=== PATIENT | male | born 1945 | race Caucasian/White ===

== ENCOUNTER 2018-11-20 18:10 | Observation (INO) | payer MEDICARE, OTHER ==
[~2018-11-20] VITALS: Ht 167.6 cm; Wt 95.9 kg
[2018-11-20] VITALS (11 sets, daily range): BP systolic 120–179; BP diastolic 53–78; BMI 37.8
[2018-11-20] MEDS ORDERED: BAYER CHEWABLE81 MG PO (18:27)
[2018-11-20] MEDS ORDERED: LOPRESSOR25 MG PO (18:27)
[2018-11-20] MEDS ORDERED: GLUCOPHAGE1000 MG PO (18:27)
[2018-11-20] MEDS ORDERED: VITAMIN D31000 UNI2 PO (18:28)
[2018-11-20] MEDS ORDERED: NOVOLIN 70/30 110 ML (18:28)
[2018-11-20 18:46] LABS: BASOPHILS 0.4 % (0-2); EOSINOPHILS 1.7 % (0-7); HEMATOCRIT 45.9 % (42.0-54.0); HEMOGLOBIN 15.4 g/dL (13.5-17.5); IMMATURE GRANULOCYTES 0.2 % (0-5); LYMPHOCYTES 34.4 % (15-50); MCH 29.6 pg (26.0-34.0); MCHC 33.6 g/dL (31.0-37.0); MCV 88.1 fL (80.0-100.0); MONOCYTES 7.7 % (2-11); NEUTROPHILS 55.6 % (40-80); PLATELET COUNT 222 10x3/uL (130-400); RBC 5.21 10x6/uL (4.20-6.10); RDW 13.5 % (11.5-14.5); WBC 10.5 10x3/uL (4.8-10.8)
[2018-11-20 18:55] LABS: INR 1.04 (0.85-1.17); PROTIME 13.1 SECONDS (11.6-15.0)
[2018-11-20 18:56] LABS: APTT 30.7 SECONDS (22.8-39.4)
[2018-11-20 19:01] LABS: ALBUMIN 3.5 g/dL (3.4-5.0); ANION GAP 14.5 mmol/L (8-16); BILIRUBIN - TOTAL 0.75 mg/dL (0.2-1.3); CALCIUM 9.1 mg/dL (8.5-10.1); CARBON DIOXIDE 28.8 mmol/L (21.0-32.0); CREATININE - SERUM 1.1 mg/dL (0.6-1.3); POTASSIUM - SERUM 4.3 mmol/L (3.5-5.1); PROTEIN - SERUM 7.5 g/dL (6.4-8.2)
[2018-11-20 20:41] LABS: CKMB 0.9 U/L (0.0-3.6); TROPONIN-I 0.018 ng/mL (0.000-0.060)
[2018-11-20 22:25] LABS: COLOR YELLOW (YELLOW)
[2018-11-20 22:26] LABS: APPEARANCE CLEAR (CLEAR); BILIRUBIN NEGATIVE (NEGATIVE); EPITHELIAL CELLS NSEEN /hpf (0-5); GLUCOSE 1000 mg/dL (NEGATIVE); KETONE NEGATIVE (NEGATIVE); NITRITE NEGATIVE (NEGATIVE); PROTEIN NEGATIVE (NEGATIVE); RED CELLS - URINE NONE SEEN /hpf (0-5); SPECIFIC GRAVITY 1.015 (1.005-1.020); WHITE CELLS - URINE NSEEN /hpf (0-5)
[2018-11-21 00:38] VITALS: BP 179/76
[2018-11-21 00:46] LABS: CREATINE KINASE 73 UL (21-232)
[2018-11-21 00:50] LABS: TROPONIN-I 0.016 ng/mL (0.000-0.060)
[2018-11-21 01:54] LABS: CKMB 0.8 U/L (0.0-3.6)
[2018-11-21 05:40] VITALS: BP 144/60
[2018-11-21 07:45] LABS: CKMB 0.6 U/L (0.0-3.6); CREATINE KINASE 54 UL (21-232); TROPONIN-I 0.021 ng/mL (0.000-0.060)
[2018-11-21 08:31] VITALS: BP 156/67
[2018-11-21 09:35] LABS: CHOL - HDL RATIO 4.1 ratio (2.3-4.9); LDL-HDL RATIO 2.6 ratio (1.5-3.5)
[2018-11-21 12:37] LABS: CKMB 0.9 U/L (0.0-3.6); CREATINE KINASE 88 UL (21-232); TROPONIN-I 0.016 ng/mL (0.000-0.060)
[2018-11-21 12:54] VITALS: BP 137/66
[2018-11-21 16:42] VITALS: BP 155/64
[2018-11-21 20:53] VITALS: BP 136/66
[2018-11-22 00:45] VITALS: BP 127/58
[2018-11-22 04:25] VITALS: BP 145/83
[2018-11-22 08:32] LABS: BASOPHILS 0.3 % (0-2); EOSINOPHILS 3.7 % (0-7); HEMATOCRIT 43.1 % (42.0-54.0); HEMOGLOBIN 14.3 g/dL (13.5-17.5); MCH 29.4 pg (26.0-34.0); MCHC 33.2 g/dL (31.0-37.0); MCV 88.7 fL (80.0-100.0); MEAN PLATELET VOLUME 8.9 fL (7.4-10.4); MONOCYTES 9.4 % (2-11); NEUTROPHILS 54.6 % (40-80); PLATELET COUNT 187 10x3/uL (130-400); RBC 4.86 10x6/uL (4.20-6.10); RDW 13.6 % (11.5-14.5)
[2018-11-22 08:48] LABS: CALCIUM 8.6 mg/dL (8.5-10.1); CARBON DIOXIDE 28.4 mmol/L (21.0-32.0); CHLORIDE - SERUM 106 mmol/L (98-107); POTASSIUM - SERUM 4.1 mmol/L (3.5-5.1); SODIUM 142 mmol/L (136-145); UREA NITROGEN 10 mg/dL (7-18)
[2018-11-22 08:49] LABS: CALC OSMOLALITY 285 mosm/kg (275-300); CREATININE - SERUM 0.8 mg/dL (0.6-1.3); GLUCOSE 171 mg/dL (74-106); eGFR NON AFRICAN AMERICAN > 90 mL/min (90-120)
[2018-11-22 08:52] VITALS: BP 138/62
[2018-11-22 12:26] VITALS: Ht 167.6 cm; Wt 95.9 kg
[2018-11-22 12:32] VITALS: BP 116/71
--- NOTE | 2018-11-22 14:36 | EC ---
PATIENT:GAMAL VÁZQUEZ DATE OF SERVICE: 11/20/18 SEX: M MEDICAL RECORD: [id number] DATE OF : [birth year] LOCATION:D. D.212 AGE OF PATIENT: 73 ADMISSION DATE: 11/20/18 REFERRING PHYSICIAN: INTERPRETING PHYSICIAN: NIXON AC MD ECHOCARDIOGRAM REPORT ECHO CHARGES 4 ECHO COMPLETE Date: 11/21/18 CLINICAL DIAGNOSIS: SYNCOPE ECHOCARDIOGRAPHIC MEASUREMENTS (adult normal given) AC root (d.<3.7cm) 3.8 cm LV Septum d (<1.2 cm> 1.1 cm Valve Excursion 1.7 cm LV Septum (systole) 1.4 cm Left Atria (s.<4.0cm> 4.4 cm LVPW d(<1.2cm) 1.1 cm RV (d.<2.3cm) 3.2 cm LVPW (sytole) 1.1 cm LV diastole(<5.6CM) 5.8 cm MV E-F(>70mm/sec) cm LV systole 5.0 cm LVOT Diameter 1.5 cm MV exc.(>10mm) cm Est.ejection fraction (50-75%) % DOPPLER: LVIT cm/sec A 109 cm/sec E 97 cm/sec LA cm/sec RVSP 21.4 mmHg LVOT 128 cm/sec AOP1/2T m/s Asc. Ao 132 cm/sec RVOT 71 cm/sec RA cm/sec PA 75 cm/sec AV Gradient Peak 7.0 mmHg AV Mean 3.4 mmHg AV Area 1.5 cm MV Gradient Peak 5.9 mmHg MV Mean 3.6 mmHg MV Area cm COMMENTS: Bobbin Winder: Real [facility] Bagging Machine Operator: Maria Luz Ac TAPE# PACS Pericardial Effusion N DATE OF SERVICE: 11/20/2018 FINDINGS: 1. Left ventricular chamber size is within normal limits. Left ventricular systolic function is normal. Overall ejection fraction is estimated at 55%. 2. Left atrium is enlarged at 4.4 cm. Right atrium and right ventricle chamber sizes are within normal limit. 3. Valvular structures have normal structure and motion. 4. Doppler interrogation reveals only trace tricuspid regurgitation that is not hemodynamically significant. No other valvular insufficiency or stenosis. ECHOCARDIOGRAM REPORT [id number] GAMAL VÁZQUEZ Pulmonary systolic pressure is estimated normal at 21 mmHg. 5. No evidence of pericardial effusion or left ventricular thrombus. TRANSINT:[id number] Voice Confirmation ID: [id number] DOCUMENT ID: [id number] NIXON AC MD at 1436 CC: [id number] DICTATION DATE: 11/21/18 1219 SLICING MACHINE TENDER: 11/21/18 1544 ADM IN [facility] [address] [place] [address]
[2018-11-22 16:42] VITALS: BP 142/67
[2018-11-22 19:00] VITALS: BP 140/70
[2018-11-23] VITALS: BP 144/60
[2018-11-23 05:36] VITALS: BP 139/64
[2018-11-23 07:36] VITALS: BP 158/74
[2018-11-23 11:12] VITALS: BP 142/62
[2018-11-23] MEDS ORDERED: COZAAR50 MG PO (11:27)
[2018-11-23] MEDS ORDERED: LIPITOR10 MG PO (11:27)
[2018-11-23] MEDS ORDERED: FLORAJEN3 CAPS460 MG PO (11:28)
[2018-11-23] MEDS ORDERED: LEVAQUIN750 MG PO (11:29)
[2018-11-23] MEDS ORDERED: ZOFRAN4 MG PO (11:30)
--- NOTE | 2018-11-24 07:06 | MORECARE ---
CASE MANAGEMENT DISCHARGE SUMMARY PATIENT: GAMAL VÁZQUEZ UNIT: [id number] ADM DATE: 11/20/18 AGE: 73 : 46 SEX: M ROOM/BED: D.2124 AUTHOR: SHERRON BUENO PHYSICIAN: REFERRING PHYSICIAN: MARGARITA SANDY MD DATE OF SERVICE: 11/24/18 Discharge Plan Patient Name: GAMAL VÁZQUEZ [facility] [facility] 1945 Planned Disposition: Home Anticipated Discharge Date: 11/24/18 Discharge Date: 11/23/2018 Expected LOS: 4 Initial Reviewer: [email or web address] Initial Review Date: 11/24/2018 Generated: 11/24/18 8:06 am Patient Name: GAMAL VÁZQUEZ Page [id number] at 0706 All edits/amendments must be made on the electronic document DICTATION DATE: 11/24/18705 CRIMINAL JUSTICE PROGRAM DIRECTOR: GALINDO 11/24/18705 RPT#: [id number] DC DATE:11/23/18 STATUS: DIS IN [facility] [address] [place] [address] END OF REPORT
== END 2018-11-23 12:50 | disposition home or self-care (01) ==
LOC: D.ER 18:10 → D.EDHOLD 23:02 → D.M2 23:02 → OBSVTIME 23:02 → D.M2 23:06
PROVIDERS: Emergency Medicine; Family Medicine; ADMIT Family Medicine
DX: J18.9 Pneumonia, unspecified organism (principal); R55 Syncope and collapse; I10 Essential (primary) hypertension; E11.9 Type 2 diabetes mellitus without complications; E55.9 Vitamin D deficiency, unspecified; I25.10 Atherosclerotic heart disease of native coronary artery without angina pectoris; I69.398 Other sequelae of cerebral infarction; H53.9 Unspecified visual disturbance; G89.29 Other chronic pain; M54.5 Low back pain; E78.5 Hyperlipidemia, unspecified

== ENCOUNTER 2018-12-10 17:17 | Emergency (ER) | payer MEDICARE, OTHER ==
[~2018-12-10] VITALS: Ht 167.6 cm; Wt 105.9 kg
[~2018-12-10 17:17] MED LIST: BAYER CHEWABLE81 MG PO; COZAAR50 MG PO; FLORAJEN3 CAPS460 MG PO; GLUCOPHAGE1000 MG PO; LEVAQUIN750 MG PO; LIPITOR10 MG PO; LOPRESSOR25 MG PO; NOVOLIN 70/30 110 ML; VITAMIN D31000 UNI2 PO; ZOFRAN4 MG PO
[2018-12-10 17:55] VITALS: Ht 167.6 cm; Wt 105.9 kg
[2018-12-10 18:45] LABS: BASOPHILS 0.5 % (0-2); EOSINOPHILS 4.8 % (0-7); HEMATOCRIT 47.1 % (42.0-54.0); HEMOGLOBIN 15.6 g/dL (13.5-17.5); IMMATURE GRANULOCYTES 0.1 % (0-5); LYMPHOCYTES 37.3 % (15-50); MCH 29.5 pg (26.0-34.0); MCHC 33.1 g/dL (31.0-37.0); MCV 89.2 fL (80.0-100.0); MEAN PLATELET VOLUME 9.3 fL (7.4-10.4); NEUTROPHILS 49.3 % (40-80); PLATELET COUNT 181 10x3/uL (130-400); RBC 5.28 10x6/uL (4.20-6.10); RDW 13.5 % (11.5-14.5); WBC 8.1 10x3/uL (4.8-10.8)
[2018-12-10 19:03] LABS: ALBUMIN 3.5 g/dL (3.4-5.0); ALKALINE PHOSPHATASE 58 U/L (46-116); ALT (SGPT) 33 U/L (10-68); CALC OSMOLALITY 281 mosm/kg (275-300); CALCIUM 9.3 mg/dL (8.5-10.1); CARBON DIOXIDE 31.1 mmol/L (21.0-32.0); CHLORIDE - SERUM 102 mmol/L (98-107); CREATININE - SERUM 0.9 mg/dL (0.6-1.3); GLUCOSE 167 mg/dL (74-106); PROTEIN - SERUM 7.4 g/dL (6.4-8.2); SODIUM 139 mmol/L (136-145); UREA NITROGEN 13 mg/dL (7-18); eGFR NON AFRICAN AMERICAN 88 mL/min (90-120)
[2018-12-10] MEDS ORDERED: TORADOL10 MG PO (22:12)
[2018-12-10 22:50] VITALS: BP 138/75
== END 2018-12-10 22:51 | disposition home or self-care (01) ==
LOC: D.ER 17:17
PROVIDERS: Family Medicine
DX: M79.661 Pain in right lower leg (principal); Z86.718 Personal history of other venous thrombosis and embolism; I87.2 Venous insufficiency (chronic) (peripheral); Z86.73 Personal history of transient ischemic attack (TIA), and cerebral infarction without residual deficits; E11.9 Type 2 diabetes mellitus without complications; Z79.4 Long term (current) use of insulin; I10 Essential (primary) hypertension

== ENCOUNTER 2019-05-19 21:19 | Inpatient (IN) | payer MEDICARE, OTHER ==
[~2019-05-19] VITALS: Ht 167.6 cm; Wt 101.4 kg
[~2019-05-19 21:19] MED LIST changes: +TORADOL10 MG PO
[2019-05-19] MEDS ORDERED: LOPRESSOR25 MG PO (21:30)
[2019-05-19] MEDS ORDERED: GLUCOPHAGE1000 MG PO (21:31)
[2019-05-19] MEDS ORDERED: ZOFRAN4 MG PO (21:31)
[2019-05-19 21:46] LABS: BASOPHILS 0.1 % (0-2); EOSINOPHILS 0.4 % (0-7); HEMATOCRIT 44.4 % (42.0-54.0); HEMOGLOBIN 15.3 g/dL (13.5-17.5); IMMATURE GRANULOCYTES 0.2 % (0-5); LYMPHOCYTES 10.1 % (15-50); MCH 29.9 pg (26.0-34.0); MCHC 34.5 g/dL (31.0-37.0); MCV 86.9 fL (80.0-100.0); MONOCYTES 7.3 % (2-11); NEUTROPHILS 81.9 % (40-80); RBC 5.11 10x6/uL (4.20-6.10); RDW 14.3 % (11.5-14.5); WBC 10.5 10x3/uL (4.8-10.8)
[2019-05-19 21:48] LABS: PLATELET COUNT 142 10x3/uL (130-400)
[2019-05-19 21:52] LABS: INR 1.05 (0.85-1.17); PROTIME 13.2 SECONDS (11.6-15.0)
[2019-05-19 21:53] LABS: APTT 30.2 SECONDS (22.8-39.4)
[2019-05-19 22:00] LABS: ALBUMIN 3.7 g/dL (3.4-5.0); ALKALINE PHOSPHATASE 68 U/L (46-116); ALT (SGPT) 24 U/L (10-68); BILIRUBIN - TOTAL 0.97 mg/dL (0.2-1.3); CALC OSMOLALITY 276 mosm/kg (275-300); CALCIUM 9.1 mg/dL (8.5-10.1); CARBON DIOXIDE 27.5 mmol/L (21.0-32.0); CHLORIDE - SERUM 101 mmol/L (98-107); CREATININE - SERUM 0.9 mg/dL (0.6-1.3); GLUCOSE 172 mg/dL (74-106); POTASSIUM - SERUM 4.3 mmol/L (3.5-5.1); PROTEIN - SERUM 7.2 g/dL (6.4-8.2); SODIUM 136 mmol/L (136-145); UREA NITROGEN 14 mg/dL (7-18); eGFR NON AFRICAN AMERICAN 88 mL/min (90-120)
[2019-05-19 22:02] LABS: CREATINE KINASE 49 UL (21-232); MAGNESIUM - SERUM 1.9 mg/dL (1.8-2.4); TROPONIN-I < 0.017 ng/mL (0.000-0.060)
[2019-05-19 22:30] VITALS: BP 149/76
[2019-05-19] MEDS ORDERED: VITAMIN E200 UNI1 PO (23:38)
[2019-05-19] MEDS ORDERED: ASCORBIC ACID500 MG PO (23:39)
[2019-05-19] MEDS ORDERED: VITAMIN D2000 UNIT PO (23:40)
[2019-05-20 01:27] VITALS: BP 143/67; BMI 36.2
[2019-05-20 04:30] VITALS: BP 127/58
[2019-05-20 05:23] LABS: BASOPHILS 0.3 % (0-2); EOSINOPHILS 0.1 % (0-7); HEMATOCRIT 41.3 % (42.0-54.0); HEMOGLOBIN 14.3 g/dL (13.5-17.5); IMMATURE GRANULOCYTES 0.3 % (0-5); LYMPHOCYTES 18.9 % (15-50); MCH 30.1 pg (26.0-34.0); MCHC 34.6 g/dL (31.0-37.0); MCV 86.9 fL (80.0-100.0); MEAN PLATELET VOLUME 9.2 fL (7.4-10.4); MONOCYTES 7.3 % (2-11); NEUTROPHILS 73.1 % (40-80); PLATELET COUNT 137 10x3/uL (130-400); RBC 4.75 10x6/uL (4.20-6.10); RDW 14.2 % (11.5-14.5)
[2019-05-20 05:31] LABS: WBC 7.8 10x3/uL (4.8-10.8)
[2019-05-20 05:48] LABS: CALCIUM 8.8 mg/dL (8.5-10.1); CARBON DIOXIDE 29.7 mmol/L (21.0-32.0); CHLORIDE - SERUM 104 mmol/L (98-107); CKMB 0.5 U/L (0.0-3.6); CREATINE KINASE 47 UL (21-232); CREATININE - SERUM 0.8 mg/dL (0.6-1.3); GLUCOSE 164 mg/dL (74-106); PHOSPHOROUS 3.9 mg/dL (2.5-4.9); POTASSIUM - SERUM 4.2 mmol/L (3.5-5.1); SODIUM 140 mmol/L (136-145); eGFR NON AFRICAN AMERICAN > 90 mL/min (90-120)
[2019-05-20 05:51] LABS: CALC OSMOLALITY 281 mosm/kg (275-300); TROPONIN-I < 0.017 ng/mL (0.000-0.060); UREA NITROGEN 10 mg/dL (7-18)
--- NOTE | 2019-05-20 07:55 | NUR ---
ASSESSMENT DONE. DENIES NEEDS
[2019-05-20 08:12] VITALS: BP 127/67
[2019-05-20 09:56] VITALS: Ht 167.6 cm; Wt 101.4 kg
[2019-05-20 10:48] LABS: CHOL - HDL RATIO 4.4 ratio (2.3-4.9); LDL-HDL RATIO 3.1 ratio (1.5-3.5)
[2019-05-20 11:02] VITALS: BP 136/65
--- NOTE | 2019-05-20 12:52 | NUR ---
I have reviewed this patient and I concur with the Shift Assessment completed by the Licensed Practical Nurse today this shift.
--- NOTE | 2019-05-20 12:54 | NUR ---
I have reviewed this patient and I concur with the Shift Assessment completed by the Licensed Practical Nurse today this shift.
[2019-05-20 15:43] VITALS: BP 120/50
--- NOTE | 2019-05-20 16:45 | NUR ---
WITHOUT CHANGES OR DISTRESS NOTED AT THIS TIME, DENIES NEEDS
[2019-05-20 19:20] LABS: COLOR YELLOW (YELLOW)
--- NOTE | 2019-05-20 19:20 | NUR ---
RECEIVED REPORT, WILL ASSUME CARE OF PT, DENIES ANY NEEDS AT THIS TIME, COLLECTED UA SENT TO LAB, BED IS LOW, SRX2, CALL LIGHT IN REACH, WILL CONTINUE PLAN OF CARE
[2019-05-20 19:21] LABS: APPEARANCE CLEAR (CLEAR); BILIRUBIN NEGATIVE (NEGATIVE); GLUCOSE NEGATIVE (NEGATIVE); KETONE NEGATIVE (NEGATIVE); NITRITE NEGATIVE (NEGATIVE); PROTEIN NEGATIVE (NEGATIVE); SPECIFIC GRAVITY 1.015 (1.005-1.020); UROBILINOGEN NORMAL (NORMAL)
[2019-05-20 20:00] VITALS: BP 133/63
--- NOTE | 2019-05-20 20:30 | NUR ---
ANTITANK ASSAULT GUNNER ASSISTED PT IN SHOWER AND CHANGED LINENS
[2019-05-21] VITALS: BP 145/57
--- NOTE | 2019-05-21 03:26 | NUR ---
I have reviewed this patient and I concur with the Shift Assessment completed by the Licensed Practical Nurse today this shift.
[2019-05-21 04:00] VITALS: BP 128/59
[2019-05-21 06:25] LABS: EOSINOPHILS 4.1 % (0-7); HEMATOCRIT 44.8 % (42.0-54.0); IMMATURE GRANULOCYTES 0.2 % (0-5); LYMPHOCYTES 42.9 % (15-50); MCH 29.6 pg (26.0-34.0); MCHC 33.5 g/dL (31.0-37.0); MCV 88.4 fL (80.0-100.0); MEAN PLATELET VOLUME 9.2 fL (7.4-10.4); MONOCYTES 10.7 % (2-11); NEUTROPHILS 41.1 % (40-80); PLATELET COUNT 143 10x3/uL (130-400); RBC 5.07 10x6/uL (4.20-6.10); RDW 14.5 % (11.5-14.5)
[2019-05-21 06:30] LABS: WBC 4.9 10x3/uL (4.8-10.8)
[2019-05-21 06:52] LABS: CALC OSMOLALITY 282 mosm/kg (275-300); CALCIUM 9.4 mg/dL (8.5-10.1); CARBON DIOXIDE 33.2 mmol/L (21.0-32.0); CHLORIDE - SERUM 104 mmol/L (98-107); CREATININE - SERUM 0.9 mg/dL (0.6-1.3); GLUCOSE 156 mg/dL (74-106); MAGNESIUM - SERUM 2.1 mg/dL (1.8-2.4); PHOSPHOROUS 4.1 mg/dL (2.5-4.9); POTASSIUM - SERUM 4.3 mmol/L (3.5-5.1); SODIUM 141 mmol/L (136-145); UREA NITROGEN 11 mg/dL (7-18); eGFR NON AFRICAN AMERICAN 88 mL/min (90-120)
--- NOTE | 2019-05-21 07:55 | NUR ---
ALERT AND ORIENTED. TELEMERTY SHOWS SB 53. 02 AT 2 LM PER NC. RIGHT FA WITH NA AT 10. UP WITH ASSIST. PT WALKS WITH A BRIONES. TYLENOL GIVEN FOR A HEADACHE. SR UP WITH CALL LIGHT IN REACH. WILL MONITOR
[2019-05-21 08:43] VITALS: BP 105/60
--- NOTE | 2019-05-21 11:19 | NUR ---
I have reviewed this patient and I concur with the Shift Assessment completed by the Licensed Practical Nurse today this shift.
[2019-05-21 12:24] VITALS: BP 135/45
--- NOTE | 2019-05-21 13:39 | NUR ---
UP IN BEDSIDE CHAIR. NO NEEDS VOICED. TELEMERTY SHOWS SR
[2019-05-21 16:08] VITALS: BP 127/58
[2019-05-21 20:00] VITALS: BP 140/59
[2019-05-22] VITALS: BP 135/51
[2019-05-22 04:00] VITALS: BP 143/62
--- NOTE | 2019-05-22 04:35 | NUR ---
SLEEPING, NO DISTRESS NOTICED AT THIS TIME, BED IS LOW, SRX2, CALL LIGHT IN REACH, WILL CONTINUE PLAN OF CARE
--- NOTE | 2019-05-22 05:12 | NUR ---
I have reviewed this patient and I concur with the Shift Assessment completed by the Licensed Practical Nurse today this shift.
[2019-05-22 05:19] LABS: BASOPHILS 0.5 % (0-2); EOSINOPHILS 4.2 % (0-7); HEMATOCRIT 44.2 % (42.0-54.0); HEMOGLOBIN 14.8 g/dL (13.5-17.5); IMMATURE GRANULOCYTES 0.2 % (0-5); LYMPHOCYTES 35.3 % (15-50); MCH 29.4 pg (26.0-34.0); MCHC 33.5 g/dL (31.0-37.0); MCV 87.9 fL (80.0-100.0); MEAN PLATELET VOLUME 9.3 fL (7.4-10.4); MONOCYTES 9.9 % (2-11); NEUTROPHILS 49.9 % (40-80); PLATELET COUNT 149 10x3/uL (130-400); RBC 5.03 10x6/uL (4.20-6.10); RDW 14.2 % (11.5-14.5)
[2019-05-22 05:26] LABS: CALC OSMOLALITY 287 mosm/kg (275-300); CALCIUM 8.9 mg/dL (8.5-10.1); CARBON DIOXIDE 33.2 mmol/L (21.0-32.0); CHLORIDE - SERUM 102 mmol/L (98-107); CREATININE - SERUM 0.8 mg/dL (0.6-1.3); GLUCOSE 144 mg/dL (74-106); PHOSPHOROUS 4.2 mg/dL (2.5-4.9); POTASSIUM - SERUM 3.7 mmol/L (3.5-5.1); SODIUM 143 mmol/L (136-145); UREA NITROGEN 12 mg/dL (7-18); eGFR NON AFRICAN AMERICAN > 90 mL/min (90-120)
[2019-05-22 05:34] LABS: WBC 6.2 10x3/uL (4.8-10.8)
--- NOTE | 2019-05-22 07:46 | NUR ---
ALERT AND ORIENTED. TELEMERTY SHOWS SR 71. O2 AT 2 L/M PER NC. DENIES ANY NEEDS. UP AB MILLA WITH BRIONES. SL TO RIGHT FA.
[2019-05-22 07:53] VITALS: BP 135/52
[2019-05-22 11:17] VITALS: BP 128/50
--- NOTE | 2019-05-22 12:12 | NUR ---
I have reviewed this patient and I concur with the Shift Assessment completed by the Licensed Practical Nurse today this shift.
[2019-05-22 15:59] VITALS: BP 133/58
--- NOTE | 2019-05-22 17:54 | NUR ---
UP IN BEDSIDE CHAIR. DENIES ANY NEEDS. TELEMERTY SHOWS SR. WILL MONITOR
--- NOTE | 2019-05-22 19:15 | NUR ---
RECEIVED REPORT, WILL ASSUME CARE OF PT, ASKING FOR ME TO WARM UP HEAT PACK, WHICH I DID, DENIES ANY OTHER NEEDS, BED IS LOW, SRX2, CALL LIGHT IN REACH, WILL CONTINUE PLAN OF CARE
[2019-05-22 20:15] VITALS: BP 139/60
[2019-05-23] VITALS: BP 119/59
[2019-05-23 05:20] LABS: BASOPHILS 0.4 % (0-2); HEMATOCRIT 41.8 % (42.0-54.0); IMMATURE GRANULOCYTES 0.1 % (0-5); LYMPHOCYTES 36.9 % (15-50); MCH 29.2 pg (26.0-34.0); MCHC 33.5 g/dL (31.0-37.0); MCV 87.1 fL (80.0-100.0); MEAN PLATELET VOLUME 8.9 fL (7.4-10.4); MONOCYTES 10.4 % (2-11); NEUTROPHILS 48.2 % (40-80); PLATELET COUNT 145 10x3/uL (130-400); WBC 7.2 10x3/uL (4.8-10.8)
[2019-05-23 06:06] LABS: CALC OSMOLALITY 284 mosm/kg (275-300); CARBON DIOXIDE 35.5 mmol/L (21.0-32.0); CHLORIDE - SERUM 101 mmol/L (98-107); CREATININE - SERUM 0.8 mg/dL (0.6-1.3); GLUCOSE 198 mg/dL (74-106); POTASSIUM - SERUM 4.2 mmol/L (3.5-5.1); SODIUM 140 mmol/L (136-145); UREA NITROGEN 13 mg/dL (7-18); eGFR NON AFRICAN AMERICAN > 90 mL/min (90-120)
[2019-05-23 07:27] VITALS: BP 136/61
--- NOTE | 2019-05-23 09:50 | EC ---
PATIENT:GAMAL VÁZQUEZ DATE OF SERVICE: 05/19/19 SEX: M MEDICAL RECORD: [id number] DATE OF : [birth year] LOCATION:D.M2 D.212 AGE OF PATIENT: 74 ADMISSION DATE: 05/19/19 REFERRING PHYSICIAN: INTERPRETING PHYSICIAN: NIXON AC MD ECHOCARDIOGRAM REPORT ECHO CHARGES 4 ECHO COMPLETE Date: 05/20/19 CLINICAL DIAGNOSIS: CAD ECHOCARDIOGRAPHIC MEASUREMENTS (adult normal given) AC root (d.<3.7cm) 2.7 cm LV Septum d (<1.2 cm> 2.0 cm Valve Excursion 1.3 cm LV Septum (systole) 2.3 cm Left Atria (s.<4.0cm> 3.6 cm LVPW d(<1.2cm) 1.2 cm RV (d.<2.3cm) 3.6 cm LVPW (sytole) 1.6 cm LV diastole(<5.6CM) 4.6 cm MV E-F(>70mm/sec) cm LV systole 3.4 cm LVOT Diameter 1.9 cm MV exc.(>10mm) cm Est.ejection fraction (50-75%) % DOPPLER: LVIT cm/sec A 86 cm/sec E 114 cm/sec LA cm/sec RVSP 26.1 mmHg LVOT 98 cm/sec AOP1/2T m/s Asc. Ao 167 cm/sec RVOT 57 cm/sec RA cm/sec PA 80 cm/sec AV Gradient Peak 11.2 mmHg AV Mean 6.8 mmHg AV Area 1.6 cm MV Gradient Peak 5.7 mmHg MV Mean 2.3 mmHg MV Area cm COMMENTS: Commodity Trader: Real GALLAGHER Business Law Professor: 1 Dr. Ac TAPE# PACS Pericardial Effusion N DATE OF SERVICE: 05/20/2019 ECHOCARDIOGRAM DATE OF SERVICE: 05/20/2019 FINDINGS: 1. Left ventricular chamber size is within normal limits. Left ventricular systolic function is normal. Overall ejection fraction estimated at 55%. 2. Left atrium, right atrium, right ventricle chamber size is within normal ECHOCARDIOGRAM REPORT [id number] GAMAL VÁZQUEZ limits. 3. Valvular structures have normal structure and motion. 4. Doppler interrogation reveals mild mitral regurgitation, mild tricuspid regurgitation, no other valvular insufficiency or stenosis. Pulmonary systolic pressure is estimated at 26 mmHg. 5. No evidence of pericardial effusion or left ventricular thrombus. TRANSINT:[id number] Voice Confirmation ID: [id number] DOCUMENT ID: [id number] NIXON AC MD at 0950 CC: [id number] DICTATION DATE: 05/21/19 1036 PSYCHIATRIC NURSE: 05/21/19 1103 ADM IN [facility] [address] [place] [address]
--- NOTE | 2019-05-23 10:06 | NUR ---
PT AWAKE, ALERT AND ORIENTED X 4. SITTING UP ON SIDE OF BED. NO DISTRESS NOTED. ASSESSMENT DONE. RESPIRATONS EVEN AND UNLABORED. WILL CONTINUE TO MONITOR.
[2019-05-23 12:20] VITALS: BP 135/67
--- NOTE | 2019-05-23 12:53 | MORECARE ---
CASE MANAGEMENT DISCHARGE SUMMARY PATIENT: GAMAL VÁZQUEZ UNIT: [id number] ADM DATE: 05/19/19 AGE: 74 : 46 SEX: M ROOM/BED: D.2121 AUTHOR: XIMENA,DOC PHYSICIAN: REFERRING PHYSICIAN: OSCAR FOSTER MD DATE OF SERVICE: 05/23/19 Discharge Plan Patient Name: GAMAL VÁZQUEZ Facility: [facility]:[place] : 1945 Planned Disposition: Anticipated Discharge Date: Discharge Date: Expected LOS: Initial Reviewer: [email or web address] Initial Review Date: 05/23/2019 Generated: 05/23/19 1:52 pm DCP- Discharge Planning Updated by [id number]: Ijeoma Prince on 05/23/19 11:[address] Patient Name: GAMAL VÁZQUEZ Admission Status: ER Accout number: [id number] Admission Date: 05-19-2019 : 1945 Admission Diagnosis:NAUSEA WITH VOMITING, UNSPECIFIED Attending: OSCAR FOSTER Current LOS: 4 Anticipated DC Date: Planned Disposition: Primary Insurance: HU[employer]NA CHOICE PPO MCR [facility] Discharge Planning Comments: CM met with patient to complete initial dc planning assessment. CM educated patient on the CM role and verbal consent given by patient to complete assessment. CM verified patient's address, phone number, and emergency contact phone numbers. Patient lives at home with family and reports he is independent in his care. At discharge patient plans to return home and feels this is a safe discharge. CM discussed availability of home health, rehab services, and medical equipment. Patient denied known discharge needs at this time.. . CM will continue to follow and will assist as needed with dc plans/needs. Traffic Sign Supervisor: Ijeoma Prince DCPIA - Discharge Planning Initial Assessment Updated by [email or web address]: Ijeoma Prince on 05/23/19 12:47 pm * Is the patient Alert and Oriented? Yes * How many steps to enter\exit or inside your home? * PCP Angelo Gardner in [place] * Pharmacy [facility] * Preadmission Environment Home with Family * ADLs Independent * Equipment Nebulizer * List name and contact numbers for known caregivers / representatives who currently or will assist patient after discharge: seth moss daughter [phone] * Verbal permission to speak to the caregivers and representatives has been obtained from the patient. N/A * Additional services required to return to the preadmission environment? No * Can the patient safely return to the preadmission environment? Yes * Has this patient been hospitalized within the prior 30 days at any hospital? No Patient Name: GAMAL VÁZQUEZ Page 21226 at 1253 All edits/amendments must be made on the electronic document DICTATION DATE: 05/23/19 125 [place] PATROL LIEUTENANT: GALINDO 05/23/19 1252 RPT#: [id number] DC DATE: STATUS: ADM IN [facility] [address] [place] [address] END OF REPORT
--- NOTE | 2019-05-23 14:21 | NUR ---
I have reviewed this patient and I concur with the Shift Assessment completed by the Licensed Practical Nurse today this shift.
[2019-05-23 15:41] VITALS: BP 120/59
--- NOTE | 2019-05-23 19:14 | NUR ---
PT SITTING IN CHAIR, FAMILY AT BEDSIDE. VITALS ARE STABLE, NO S/S OF DISTRESSED NOTED. REQUESTED A WARM TOWEL FOR EAR, PROVIDED PROMPTLY. DENIES OTHER NEEDS AT THIS TIME. WILL CONTINUE TO MONITOR.
[2019-05-23 20:44] VITALS: BP 136/59
--- NOTE | 2019-05-23 22:08 | NUR ---
EVENING MEDICATION GIVEN AT THIS TIME. NO PROBLEMS SWALLOWING. NEW WINDOW PUT ON IV SITE, LEADS REPLACED FOR TELEMETRY. DENIES OTHER NEEDS AT THIS TIME. WILL CONTINUE TO MONITOR.
--- NOTE | 2019-05-24 00:06 | NUR ---
PT RESTING SUPINE IN BED. BREATHING EVEN AND UNLABORED, NO S/S OF DISTRESS. WILL CONTINUE TO MONITOR.
[2019-05-24 00:45] VITALS: BP 132/47
--- NOTE | 2019-05-24 02:18 | NUR ---
PT RESTING SUPINE IN BED WITH EYES CLOSED. BREATHING EVEN AND UNLABORED, NO S/S OF DISTRESS. WILL CONTINUE TO MONITOR.
--- NOTE | 2019-05-24 05:08 | NUR ---
PT RIGHT FOREARM IV CAME OUT, DISCONNECTED, NEW IV STARTED IN LEFT FA. TOLERATED PROCEDURE WELL. AKSED FOR PRN ZOFRAN, PROVIDED. DENIES OTHER NEEDS AT THIS TIME. WILL CONTINUE TO MONITOR.
[2019-05-24 06:39] VITALS: BP 155/61
[2019-05-24 07:00] LABS: BASOPHILS 0.3 % (0-2); EOSINOPHILS 3.3 % (0-7); HEMATOCRIT 42.9 % (42.0-54.0); HEMOGLOBIN 14.7 g/dL (13.5-17.5); IMMATURE GRANULOCYTES 0.1 % (0-5); LYMPHOCYTES 24.3 % (15-50); MCH 29.5 pg (26.0-34.0); MCHC 34.3 g/dL (31.0-37.0); MEAN PLATELET VOLUME 8.9 fL (7.4-10.4); MONOCYTES 10.1 % (2-11); NEUTROPHILS 61.9 % (40-80); PLATELET COUNT 150 10x3/uL (130-400); RBC 4.99 10x6/uL (4.20-6.10); RDW 13.8 % (11.5-14.5); WBC 7.6 10x3/uL (4.8-10.8)
[2019-05-24 07:09] LABS: CALC OSMOLALITY 282 mosm/kg (275-300); CALCIUM 9.3 mg/dL (8.5-10.1); CARBON DIOXIDE 33.2 mmol/L (21.0-32.0); CHLORIDE - SERUM 102 mmol/L (98-107); CREATININE - SERUM 0.7 mg/dL (0.6-1.3); GLUCOSE 170 mg/dL (74-106); MAGNESIUM - SERUM 2.1 mg/dL (1.8-2.4); PHOSPHOROUS 3.8 mg/dL (2.5-4.9); POTASSIUM - SERUM 4.3 mmol/L (3.5-5.1); SODIUM 139 mmol/L (136-145); UREA NITROGEN 15 mg/dL (7-18); eGFR NON AFRICAN AMERICAN > 90 mL/min (90-120)
[2019-05-24 07:57] VITALS: BP 129/71
[2019-05-24 11:18] VITALS: BP 142/64
--- NOTE | 2019-05-24 12:52 | NUR ---
PATIENT AMBULATED ON RA AND IS NOW 94%
--- NOTE | 2019-05-24 14:10 | NUR ---
I have reviewed this patient and I concur with the Shift Assessment completed by the Licensed Practical Nurse today this shift.
--- NOTE | 2019-05-24 16:35 | MORECARE ---
CASE MANAGEMENT DISCHARGE SUMMARY PATIENT: GAMAL VÁZQUEZ UNIT: [id number] ADM DATE: 05/19/19 AGE: 74 : 46 SEX: M ROOM/BED: D.2121 AUTHOR: SHERRON BUENO PHYSICIAN: REFERRING PHYSICIAN: OSCAR FOSTER MD DATE OF SERVICE: 05/24/19 Discharge Plan Patient Name: GAMAL VÁZQUEZ Facility: [facility]:[place] : 1945 Planned Disposition: Home Anticipated Discharge Date: 05/24/19 Discharge Date: Expected LOS: 5 Initial Reviewer: [email or web address] Initial Review Date: 05/23/2019 Generated: 05/24/19 5:35 pm Comments DCP- Discharge Planning Updated by [email or web address]: Shakeel Zhang on 05/24/19 3:[address] Patient Name: GAMAL VÁZQUEZ Encounter No: [id number] : 1945 Primary Insurance: HU[employer]NA CHOICE PPO MCR [employer] Anticipated DC Date: 05-24-2019 Planned Disposition: Home DCP follow-up note: CM MET WITH PT IN ROOM TO DISCUSS DISCHARGE NEEDS AND PLANNING. CM DISCUSSED AVAILABILITY OF HOME HEALTH, REHAB SERVICES AND MEDICAL EQUIPMENT. PT DENIES DISCHARGE NEEDS. PT REPORTS FAMILY ON THE WAY TO TRANSPORT HOME AT DISCHARGE. IMPORTANT MESSAGE FROM MEDICARE PROVIDED AND EXPLAINED. Shakeel Zhang, CASE MANAGEMENT DCP- Discharge Planning Updated by [id number]: Ijeoma Prince on 05/23/19 11:[address] Patient Name: GAMAL VÁZQUEZ Admission Status: ER Accout number: [id number] Admission Date: 05-19-2019 : 1945 Admission Diagnosis:NAUSEA WITH VOMITING, UNSPECIFIED Attending: OSCAR FOSTER Current LOS: 4 Anticipated DC Date: Planned Disposition: Primary Insurance: HU[employer]NA CHOICE PPO MCR [employer] Discharge Planning Comments: CM met with patient to complete initial dc planning assessment. CM educated patient on the CM role and verbal consent given by patient to complete assessment. CM verified patient's address, phone number, and emergency contact phone numbers. Patient lives at home with family and reports he is independent in his care. At discharge patient plans to return home and feels this is a safe discharge. CM discussed availability of home health, rehab services, and medical equipment. Patient denied known discharge needs at this time.. . CM will continue to follow and will assist as needed with dc plans/needs. Exterminator Termite: Ijeoma Prince DCPIA - Discharge Planning Initial Assessment Updated by [id number]: Ijeoma Prince on 05/23/19 12:47 pm * Is the patient Alert and Oriented? Yes * How many steps to enter\exit or inside your home? * PCP Angelo Gardner in [place] * Pharmacy [facility] * Preadmission Environment Home with Family * ADLs Independent * Equipment Nebulizer * List name and contact numbers for known caregivers / representatives who currently or will assist patient after discharge: seth moss daughter [phone] * Verbal permission to speak to the caregivers and representatives has been obtained from the patient. N/A * Additional services required to return to the preadmission environment? No * Can the patient safely return to the preadmission environment? Yes * Has this patient been hospitalized within the prior 30 days at any hospital? No Coverage Notice Reviewer: [email or web address] Nancy Zhang Notice Issued Date-Time: 05/24/2019 16:20 Notice Type: IM Discharge Notice Notice Delivered To: Patient Relationship to Patient: Hospice Nurse Name: Delivery Method: HAND - Hand Delivered Мария Days: Prior Verbal Notification: Recipient Understood Notice: Yes Recipient Signature: Yes Med Rec Note Co-signed by Attending: Coverage Notice Comment: Last DP export: 05/23/19 11:53 am Patient Name: GAMAL VÁZQUEZ Page [phone] at 1635 All edits/amendments must be made on the electronic document DICTATION DATE: 05/24/19 1634 BOOKKEEPING TEACHER: GALINDO 05/24/19 1634 RPT#: [id number] DC DATE: STATUS: ADM IN [facility] [address] [place] [address] END OF REPORT
--- NOTE | 2019-05-24 16:54 | NUR ---
DC GIVEN TO PT
--- NOTE | 2019-05-24 17:11 | NUR ---
DC HOME PER PERSONAL CAR
== END 2019-05-24 17:13 | disposition home or self-care (01) | DRG 291 ==
LOC: D.ER 21:19 → D.M2 22:21
PROVIDERS: Family Medicine; Internal Medicine Interventional Cardiology; ADMIT Family Medicine; ATTEND Family Medicine
DX: I11.0 Hypertensive heart disease with heart failure (principal); I50.31 Acute diastolic (congestive) heart failure; J18.9 Pneumonia, unspecified organism; R11.2 Nausea with vomiting, unspecified; I25.10 Atherosclerotic heart disease of native coronary artery without angina pectoris; E11.69 Type 2 diabetes mellitus with other specified complication; E78.5 Hyperlipidemia, unspecified; R10.13 Epigastric pain

== ENCOUNTER 2019-07-24 14:52 | Inpatient (IN) | payer MEDICARE ==
[~2019-07-24] VITALS: Ht 167.6 cm; Wt 92.2 kg
[2019-07-24] VITALS (7 sets, daily range): BP systolic 121–154; BP diastolic 58–72; Ht 167.6 cm; Wt 92.2 kg
[~2019-07-24 14:52] MED LIST changes: +ASCORBIC ACID500 MG PO; +VITAMIN D2000 UNIT PO; +VITAMIN E200 UNI1 PO
[2019-07-24 15:23] LABS: BASOPHILS 0.4 % (0-2); EOSINOPHILS 4.2 % (0-7); HEMATOCRIT 47.2 % (42.0-54.0); HEMOGLOBIN 16.4 g/dL (13.5-17.5); IMMATURE GRANULOCYTES 0.2 % (0-5); LYMPHOCYTES 22.2 % (15-50); MCH 30.4 pg (26.0-34.0); MCHC 34.7 g/dL (31.0-37.0); MCV 87.6 fL (80.0-100.0); MEAN PLATELET VOLUME 9.1 fL (7.4-10.4); MONOCYTES 7.8 % (2-11); NEUTROPHILS 65.2 % (40-80); PLATELET COUNT 158 10x3/uL (130-400); RBC 5.39 10x6/uL (4.20-6.10); RDW 14.7 % (11.5-14.5); WBC 9.4 10x3/uL (4.8-10.8)
[2019-07-24 15:57] LABS: ALBUMIN 3.7 g/dL (3.4-5.0); ALKALINE PHOSPHATASE 62 U/L (46-116); ALT (SGPT) 27 U/L (10-68); BILIRUBIN - TOTAL 1.36 mg/dL (0.2-1.3); CALC OSMOLALITY 286 mosm/kg (275-300); CALCIUM 8.8 mg/dL (8.5-10.1); CARBON DIOXIDE 25.8 mmol/L (21.0-32.0); CHLORIDE - SERUM 106 mmol/L (98-107); CREATININE - SERUM 0.8 mg/dL (0.6-1.3); GLUCOSE 182 mg/dL (74-106); POTASSIUM - SERUM 4.2 mmol/L (3.5-5.1); PROTEIN - SERUM 6.8 g/dL (6.4-8.2); SODIUM 141 mmol/L (136-145); UREA NITROGEN 15 mg/dL (7-18); eGFR NON AFRICAN AMERICAN > 90 mL/min (90-120)
[2019-07-24 15:58] LABS: LIPASE 247 U/L (73-393); PRO BNP 106 pg/mL (0-125); THYROID STIMULATING HORMONE 1.78 uIU/mL (0.36-3.74)
[2019-07-24 16:05] LABS: TROPONIN-I < 0.017 ng/mL (0.000-0.060)
--- NOTE | 2019-07-24 16:42 | NUR ---
URINE SENT TO THE LAB
[2019-07-24 16:46] LABS: APPEARANCE CLEAR (CLEAR); BILIRUBIN NEGATIVE (NEGATIVE); COLOR YELLOW (YELLOW); GLUCOSE 50 mg/dL (NEGATIVE); KETONE NEGATIVE (NEGATIVE); NITRITE NEGATIVE (NEGATIVE); PROTEIN NEGATIVE (NEGATIVE); SPECIFIC GRAVITY 1.015 (1.005-1.020); UROBILINOGEN NORMAL (NORMAL)
--- NOTE | 2019-07-24 19:22 | NUR ---
PT CARE ASSUMED. RR EVEN AND UNLABORED. NO S/S OF DISTRESS NOTED. DENIES NEEDS AT THIS TIME. CALL LIGHT IN REACH. WILL CTM.
[2019-07-25 00:18] VITALS: BP 151/69
[2019-07-25 04:30] LABS: BASOPHILS 0.3 % (0-2); EOSINOPHILS 3.1 % (0-7); HEMATOCRIT 43.6 % (42.0-54.0); HEMOGLOBIN 15.2 g/dL (13.5-17.5); IMMATURE GRANULOCYTES 0.2 % (0-5); LYMPHOCYTES 25.8 % (15-50); MCH 30.3 pg (26.0-34.0); MCHC 34.9 g/dL (31.0-37.0); MCV 86.9 fL (80.0-100.0); MEAN PLATELET VOLUME 8.8 fL (7.4-10.4); MONOCYTES 12.8 % (2-11); NEUTROPHILS 57.8 % (40-80); PLATELET COUNT 136 10x3/uL (130-400); RBC 5.02 10x6/uL (4.20-6.10); RDW 14.6 % (11.5-14.5)
[2019-07-25 04:36] LABS: WBC 6.2 10x3/uL (4.8-10.8)
[2019-07-25 04:51] LABS: ALBUMIN 3.3 g/dL (3.4-5.0); ALKALINE PHOSPHATASE 59 U/L (46-116); ALT (SGPT) 23 U/L (10-68); BILIRUBIN - TOTAL 1.06 mg/dL (0.2-1.3); CALC OSMOLALITY 285 mosm/kg (275-300); CALCIUM 8.5 mg/dL (8.5-10.1); CARBON DIOXIDE 23.9 mmol/L (21.0-32.0); CHLORIDE - SERUM 108 mmol/L (98-107); CREATININE - SERUM 0.9 mg/dL (0.6-1.3); GLUCOSE 181 mg/dL (74-106); MAGNESIUM - SERUM 1.8 mg/dL (1.8-2.4); POTASSIUM - SERUM 3.9 mmol/L (3.5-5.1); PROTEIN - SERUM 6.5 g/dL (6.4-8.2); SODIUM 141 mmol/L (136-145); TROPONIN-I < 0.017 ng/mL (0.000-0.060); UREA NITROGEN 12 mg/dL (7-18); eGFR NON AFRICAN AMERICAN 88 mL/min (90-120)
[2019-07-25 06:25] VITALS: BP 124/81
[2019-07-25 08:43] VITALS: BP 113/64
--- NOTE | 2019-07-25 09:30 | NUR ---
PT IN BED. ALERT AND ORIENTED. WATCHING TV. PT HAS NO FURTHER NEEDS AT THIS TIME. BED LOW. CL IN REACH.
[2019-07-25 13:00] LABS: APTT 33.6 SECONDS (22.8-39.4); INR 1.12 (0.85-1.17); PROTIME 13.9 SECONDS (11.6-15.0)
[2019-07-25 13:28] VITALS: BP 150/70
--- NOTE | 2019-07-25 16:52 | NUR ---
PT HAS A NON PRODUCTIVE COUGH. UNABLE TO COLLECT RESPIRATORY CULTURE.
[2019-07-25 17:15] VITALS: BP 147/69
--- NOTE | 2019-07-25 17:18 | NUR ---
I have reviewed this patient and I concur with the Shift Assessment completed by the Licensed Practical Nurse today this shift.
--- NOTE | 2019-07-25 19:16 | NUR ---
REPORT RECEIVED FROM DAY SHIFT, PT CARE ASSUMED. INTRODUCED SELF AND WROTE NAME ON BOARD, PT AAOX4, SITTING UP IN BED WATCHING TV. DENIES PAIN OR ANY NEEDS AT THIS TIME. BED IN LOWEST POSITION, SR X2, CALL LIGHT WITHIN REACH. WILL CONTINUE TO MONITOR.
[2019-07-25 20:00] VITALS: BP 134/62
--- NOTE | 2019-07-25 21:29 | NUR ---
NIGHT TIME MEDS ADMINSITERED, PER ORDER. FSBS 328, 12 UNITS HUMULIN ADMINSTERED, PER SLIDING SCALE. OFFERED AND PT ACCEPTED SNACK. DENIES PAIN OR ANY OTHER NEEDS AT THIS TIME. BED IN LOWEST POSITION, SR X3, CALL LIGHT AND URINAL WITHIN REACH. WILL CONTINUE TO MONITOR.
[2019-07-26 00:01] VITALS: BP 124/61
[2019-07-26 04:00] VITALS: BP 139/55
[2019-07-26 05:26] LABS: BASOPHILS 0 % (0-2); EOSINOPHILS 0 % (0-7); HEMATOCRIT 43.3 % (42.0-54.0); HEMOGLOBIN 14.9 g/dL (13.5-17.5); IMMATURE GRANULOCYTES 0.2 % (0-5); LYMPHOCYTES 19.4 % (15-50); MCH 29.7 pg (26.0-34.0); MCHC 34.4 g/dL (31.0-37.0); MCV 86.3 fL (80.0-100.0); MEAN PLATELET VOLUME 9.3 fL (7.4-10.4); MONOCYTES 1.2 % (2-11); NEUTROPHILS 79.2 % (40-80); PLATELET COUNT 158 10x3/uL (130-400); RBC 5.02 10x6/uL (4.20-6.10); RDW 14.4 % (11.5-14.5); WBC 5.1 10x3/uL (4.8-10.8)
[2019-07-26 06:01] LABS: ALBUMIN 3.4 g/dL (3.4-5.0); ANION GAP 15.8 mmol/L (8-16); BILIRUBIN - TOTAL 0.49 mg/dL (0.2-1.3); CALCIUM 8.6 mg/dL (8.5-10.1); CARBON DIOXIDE 23.5 mmol/L (21.0-32.0); CREATININE - SERUM 1.1 mg/dL (0.6-1.3); MAGNESIUM - SERUM 1.9 mg/dL (1.8-2.4); POTASSIUM - SERUM 4.3 mmol/L (3.5-5.1); PROTEIN - SERUM 6.9 g/dL (6.4-8.2)
--- NOTE | 2019-07-26 08:32 | NUR ---
PT RESTING IN BED WITH EYES OPEN CALL LIGHT IN REACH WILL MONITER
[2019-07-26 09:47] VITALS: BP 144/61
[2019-07-26 12:34] VITALS: BP 130/53
--- NOTE | 2019-07-26 18:21 | NUR ---
PT RESTING IN BED WITH EYES OPEN CALL LIGHT IN REACH NO PROBLEMS WILL MONITER
--- NOTE | 2019-07-26 18:31 | NUR ---
I have reviewed this patient and I concur with the Shift Assessment completed by the Licensed Practical Nurse today this shift.
--- NOTE | 2019-07-26 19:33 | NUR ---
REPORT RECEIVED FROM DAY SHIFT, PT CARE ASSUMED. WROTE NAME ON BOARD, PT SITTING UP IN BED, WATCHING TV, AAOX4. DENIES ANY NEEDS AT THIS TIME. BED IN LOWEST POSITION, SR X2, CALL LIGHT AND GLASSES WITHIN REACH. WILL CONTINUE TO MONITOR.
[2019-07-26 20:00] VITALS: BP 127/56
--- NOTE | 2019-07-26 22:07 | NUR ---
PT SITTING UP IN BED, WATCHING TV. FSBS 301, NIGHT TIME MEDS ADMINISTERED, PER ORDER. OFFERED SNACK, PT ACCEPTED. DENIES ANY OTHER NEEDS AT THIS TIME. BED IN LOWEST POSITION, SR X2, CALL LIGHT AND GLASSES WITHIN REACH. WILL CONTINUE TO MONITOR.
[2019-07-27 00:41] VITALS: BP 134/56
--- NOTE | 2019-07-27 03:28 | NUR ---
PT LYING IN BED WITH EYES CLOSED, RR EVEN AND NONLABORED, NO S/S OF DISTRESS, EASILY AROUSES TO VOICE. DENIES ANY NEEDS AT THIS TIME. BED IN LOWEST POSITION, SR X2, CALL LIGHT WITHIN REACH. WILL CONTINUE TO MONITOR.
[2019-07-27 04:00] VITALS: BP 137/55
[2019-07-27 05:04] LABS: ALKALINE PHOSPHATASE 53 U/L (46-116); ALT (SGPT) 20 U/L (10-68); BILIRUBIN - TOTAL 0.33 mg/dL (0.2-1.3); CALCIUM 8.3 mg/dL (8.5-10.1); CARBON DIOXIDE 28.8 mmol/L (21.0-32.0); CHLORIDE - SERUM 104 mmol/L (98-107); CREATININE - SERUM 0.9 mg/dL (0.6-1.3); GLUCOSE 306 mg/dL (74-106); MAGNESIUM - SERUM 2.1 mg/dL (1.8-2.4); POTASSIUM - SERUM 4.4 mmol/L (3.5-5.1); PROTEIN - SERUM 6.3 g/dL (6.4-8.2); SODIUM 138 mmol/L (136-145); eGFR NON AFRICAN AMERICAN 88 mL/min (90-120)
[2019-07-27 05:09] LABS: CALC OSMOLALITY 289 mosm/kg (275-300); UREA NITROGEN 18 mg/dL (7-18)
[2019-07-27 05:12] LABS: BASOPHILS 0.1 % (0-2); EOSINOPHILS 0 % (0-7); HEMATOCRIT 40.7 % (42.0-54.0); HEMOGLOBIN 14.1 g/dL (13.5-17.5); IMMATURE GRANULOCYTES 0.2 % (0-5); LYMPHOCYTES 14.3 % (15-50); MCH 29.7 pg (26.0-34.0); MCHC 34.6 g/dL (31.0-37.0); MCV 85.7 fL (80.0-100.0); MEAN PLATELET VOLUME 9.7 fL (7.4-10.4); MONOCYTES 4.1 % (2-11); NEUTROPHILS 81.3 % (40-80); PLATELET COUNT 145 10x3/uL (130-400); RBC 4.75 10x6/uL (4.20-6.10); RDW 14.5 % (11.5-14.5)
[2019-07-27 05:13] LABS: WBC 8.7 10x3/uL (4.8-10.8)
--- NOTE | 2019-07-27 07:40 | NUR ---
PT RESTING IN BED, SHIFT ASSESSMENT PERFORMED. DENIES ANY NEEDS AT THIS TIME. WILL CONT TO FOLLOW POC
[2019-07-27 08:20] VITALS: BP 136/75
[2019-07-27 11:10] LABS: IMMUNOGLOBULIN A 99 mg/dL (61-437); IMMUNOGLOBULIN G 833 mg/dL (700-1600)
[2019-07-27 11:38] VITALS: BP 126/71
--- NOTE | 2019-07-27 12:15 | NUR ---
PT RESTING IN BED EATING LUNCH, DENIES ANY NEEDS AT THIS TIME,WILL CONT TO FOLLOW POC
[2019-07-27 14:03] VITALS: BP 165/74
--- NOTE | 2019-07-27 17:53 | NUR ---
PT SITTING IN BED EATING SUPPER, DENIES ANY NEEDS AT THIS TIME, WILL CONT TO FOLLOW POC
--- NOTE | 2019-07-27 19:33 | NUR ---
REPORT RECEIVED FROM DAY SHIFT, PT CARE ASSUMED. WROTE NAME ON BOARD. PT SITTING UP IN BED, WATCHING TV, AAOX4. DENIES PAIN OR ANY NEEDS AT THIS TIME. BED IN LOWEST POSITION, SR X2, CALL LIGHT WITHIN REACH. WILL CONTINUE TO MONITOR.
[2019-07-27 20:00] VITALS: BP 140/49
--- NOTE | 2019-07-27 22:13 | NUR ---
FSBS 250, NIGHT TIME MEDS ADMINSITERED, PER ORDER. OFFERED SNACK, PT ACCEPTED. DENIES ANY OTHER NEEDS AT THIS TIME. BED IN LOWEST POSITION, SR X1, CALL LIGHT WITHIN REACH. WILL CONTINUE TO MONITOR.
[2019-07-28] VITALS: BP 104/50
--- NOTE | 2019-07-28 01:40 | NUR ---
PT LYING IN BED WITH EYES CLOSED, RR EVEN AND NONLABORED, NO S/S OF DISTRESS, AROUSES EASILY TO VOICE. DENIES ANY NEEDS AT THIS TIME. BED IN LOWEST POSITION, SR X2, CALL LIGHT AND URINAL WITHIN REACH. WILL CONTINUE TO MONITOR.
[2019-07-28 04:00] VITALS: BP 125/64
[2019-07-28 06:47] LABS: BASOPHILS 0 % (0-2); EOSINOPHILS 0 % (0-7); HEMATOCRIT 41.3 % (42.0-54.0); HEMOGLOBIN 14.2 g/dL (13.5-17.5); IMMATURE GRANULOCYTES 0.1 % (0-5); LYMPHOCYTES 19.6 % (15-50); MCH 29.5 pg (26.0-34.0); MCHC 34.4 g/dL (31.0-37.0); MCV 85.7 fL (80.0-100.0); MEAN PLATELET VOLUME 9.4 fL (7.4-10.4); MONOCYTES 6.4 % (2-11); NEUTROPHILS 73.9 % (40-80); PLATELET COUNT 144 10x3/uL (130-400); RBC 4.82 10x6/uL (4.20-6.10); RDW 14.4 % (11.5-14.5); WBC 9.2 10x3/uL (4.8-10.8)
[2019-07-28 07:09] LABS: ALKALINE PHOSPHATASE 54 U/L (46-116); ALT (SGPT) 24 U/L (10-68); BILIRUBIN - TOTAL 0.43 mg/dL (0.2-1.3); CALC OSMOLALITY 288 mosm/kg (275-300); CALCIUM 8.5 mg/dL (8.5-10.1); CARBON DIOXIDE 30.7 mmol/L (21.0-32.0); CHLORIDE - SERUM 102 mmol/L (98-107); CREATININE - SERUM 0.8 mg/dL (0.6-1.3); GLUCOSE 278 mg/dL (74-106); MAGNESIUM - SERUM 2.1 mg/dL (1.8-2.4); POTASSIUM - SERUM 4.4 mmol/L (3.5-5.1); PROTEIN - SERUM 6.2 g/dL (6.4-8.2); SODIUM 139 mmol/L (136-145); UREA NITROGEN 15 mg/dL (7-18); eGFR NON AFRICAN AMERICAN > 90 mL/min (90-120)
--- NOTE | 2019-07-28 07:20 | NUR ---
PT RESTING IN BED, SHIFT ASSESSMENT PERFORMED. DENIES ANY NEEDS AT THIS TIME, WILL CONT TO FOLLOW POC
[2019-07-28 09:13] VITALS: BP 164/64
[2019-07-28] MEDS ORDERED: OMNICEF300 MG PO (10:13)
[2019-07-28] MEDS ORDERED: ZITHROMAX250 MG PO (10:14)
[2019-07-28] MEDS ORDERED: PREDNISONE10 MG PO (10:20)
--- NOTE | 2019-07-28 12:12 | NUR ---
DISCHARGE INSTRUCTIONS REVIEWED WITH PT AND ALL QUESTIONS ANSWERED. PIV REMOVED WITH CATHETER TIP INTACT. PT ASSISTED TO FRONT OF HOSPITAL VIA WHEELCHAIR.
[2019-07-28 17:08] LABS: IMMUNOGLOBULIN E 199 IU/mL (6-495)
--- NOTE | 2019-07-28 17:44 | MORECARE ---
CASE MANAGEMENT DISCHARGE SUMMARY PATIENT: GAMAL VÁZQUEZ UNIT: [id number] ADM DATE: 07/26/19 AGE: 74 : 46 SEX: M ROOM/BED: D.2103 AUTHOR: SHERRON BUENO PHYSICIAN: REFERRING PHYSICIAN: CATHI UNDERWOOD MD DATE OF SERVICE: 07/28/19 Discharge Plan Patient Name: GAMAL VÁZQUEZ [facility] [facility] 1945 Planned Disposition: Home Anticipated Discharge Date: 07/28/19 Discharge Date: 07/28/2019 Expected LOS: 2 Initial Reviewer: [email or web address] Initial Review Date: 07/28/2019 Generated: 07/28/19 6:44 pm Coverage Notice Reviewer: [email or web address] Nancy Peralta Notice Issued Date-Time: 07/25/2019 16:42 Notice Type: Medicare Outpatient Observation Notice Notice Delivered To: Patient Relationship to Patient: Control Analyst Name: Delivery Method: HAND - Hand Delivered Мария Days: Prior Verbal Notification: Recipient Understood Notice: Yes Recipient Signature: Yes Med Rec Note Co-signed by Attending: Coverage Notice Comment: Patient Name: GAMAL VÁZQUEZ Page 53082 at 1744 All edits/amendments must be made on the electronic document DICTATION DATE: 07/28/191743 SOLUTION STRATEGIST: GALINDO 07/28/191743 RPT#: [id number] DC DATE:07/28/19 STATUS: DIS IN [facility] [address] [place] [address] END OF REPORT
--- NOTE | 2019-07-28 17:51 | MORECARE ---
CASE MANAGEMENT DISCHARGE SUMMARY PATIENT: GAMAL VÁZQUEZ UNIT: [id number] ADM DATE: 07/26/19 AGE: 74 : [birth year] SEX: M ROOM/BED: D.2103 AUTHOR: XIMENA,DOC PHYSICIAN: REFERRING PHYSICIAN: CATHI UNDERWOOD MD DATE OF SERVICE: 07/28/19 Discharge Plan Patient Name: GAMAL VÁZQUEZ Facility: [facility]:[place] : 1945 Planned Disposition: Home Anticipated Discharge Date: 07/28/19 Discharge Date: 07/28/2019 Expected LOS: 2 Initial Reviewer: [email or web address] Initial Review Date: 07/28/2019 Generated: 07/28/19 6:51 pm Comments DCP- Discharge Planning Updated by [email or web address]: Shakeel Zhang on 07/28/19 4:[address] Patient Name: GAMAL VÁZQUEZ Admission Status: ER Accout number: [id number] Admission Date: 07-26-2019 : 1945 Admission Diagnosis: Attending: CATHI UNDERWOOD Current LOS: 2 Anticipated DC Date: 07-28-2019 Planned Disposition: Home Primary Insurance: HU[employer] CHOICE PPO MCR ADVANT Discharge Planning Comments: CM MET WITH PT IN ROOM TO DISCUSS DISCHARGE PLANNING AND NEEDS. PT REPORTS LIVING AT HOME INDEPENDENTLY WITH ADULT DAUGHTER. PT HAS CANE, NEBULIZER AND WALKER FROM [facility] OUT OF [place]. PT HAS NO OUTSIDE SERVICES ASSISTING IN THE HOME. CM DISCUSSED AVAILABILITY OF HOME HEALTH, REHAB SERVICES AND MEDICAL EQUIPMENT. PT DENIES DISCHARGE NEEDS, REPORTS HIS DAUGHTER WILL PICK HIM UP FOR DISCHARGE HOME TODAY. Housing Relocation: Shakeel Zhang DCPIA - Discharge Planning Initial Assessment Updated by [email or web address]: Shakeel Zhang on 07/28/19 5:45 pm * Is the patient Alert and Oriented? Yes * How many steps to enter\exit or inside your home? NONE * PCP DR. SHAE CERVANTES PICKETT * Pharmacy [facility] [address] * Preadmission Environment Home with Family * ADLs Independent * Equipment Cane Nebulizer Walker * Other Equipment PROVIDER: [facility] [place], [place] * List name and contact numbers for known caregivers / representatives who currently or will assist patient after discharge: ROMEO GIBSON DTR, * Verbal permission to speak to the caregivers and representatives has been obtained from the patient. N/A * Community resources currently utilized None * Please name any agencies selected above. NONE * Additional services required to return to the preadmission environment? No * Can the patient safely return to the preadmission environment? Yes * Has this patient been hospitalized within the prior 30 days at any hospital? No Coverage Notice Reviewer: [id number] Nancy Peralta Notice Issued Date-Time: 07/25/2019 16:42 Notice Type: Medicare Outpatient Observation Notice Notice Delivered To: Patient Relationship to Patient: Fretted Instrument Repairer Name: Delivery Method: HAND - Hand Delivered Мария Days: Prior Verbal Notification: Recipient Understood Notice: Yes Recipient Signature: Yes Med Rec Note Co-signed by Attending: Coverage Notice Comment: Last DP export: 07/28/19 4:44 pm Patient Name: GAMAL VÁZQUEZ Page 47627 at 1751 All edits/amendments must be made on the electronic document DICTATION DATE: 07/28/191750 ROLL CUTTING OPERATOR: GALINDO 07/28/191750 RPT#: [id number] DC DATE:07/28/19 STATUS: DIS IN [facility] [address] [place] [address] END OF REPORT
[2019-07-28 21:06] LABS: IGG SUBCLASS 1 419 mg/dL (248-810); IGG SUBCLASS 2 253 mg/dL (130-555); IGG SUBCLASS 3 68 mg/dL (15-102); IGG SUBCLASS 4 5 mg/dL (2-96); IGGS - IGG SERUM 792 mg/dL (700-1600)
--- NOTE | 2019-08-03 14:31 | CN ---
PATIENT NAME:GAMAL VÁZQUEZ MEDICAL RECORD: [id number] : 47 LOCATION:D. D.2103 ADMIT DATE: 07/26/19 ACCOUNT: [id number] CONSULTING PHYSICIAN: NIXON FLYNN MD REFERRING PHYSICIAN: CATHI UNDERWOOD MD DATE OF CONSULTATION: 07/27/2019 CARDIOLOGY CONSULTATION DIAGNOSES: 1. Shortness of breath, dyspnea on exertion. 2. Asthmatic bronchitis. 3. Coronary artery disease. 4. Status post coronary artery bypass graft surgery. 5. Chest pain, noncardiac. 6. Hypertension. 7. Noninsulin dependent diabetes. HISTORY OF PRESENT ILLNESS: Mr. Vázquez presents with shortness of breath, dyspnea on exertion, coughing, chest pain, only associated with cough, was diagnosed as asthmatic bronchitis by pulmonary and is being treated as such. He does not have diastolic dysfunction and does not have heart failure. His echocardiogram shows a normal ejection fraction, normal valvular structures. No significant valvular insufficiency or stenosis. He has a history of coronary artery disease, status post coronary artery bypass graft surgery. He has had no anginal chest discomfort. Troponin is normal. EKG is with no changes. PHYSICAL EXAMINATION: CONSTITUTIONAL/GENERAL APPEARANCE: Well nourished, well developed, appears stated age. EYES: Lids and conjunctivae noninjected. No discharge. No pallor. ENT: Lips within normal limit. No cyanosis. No pallor. NECK: Carotid arteries, bilateral normal upstroke. No bruits. No thrills. No jugular venous pressure or distention. CERVICAL LYMPH NODES: Nontender. Nonenlarged. THYROID: Not enlarged. No nodules. CARDIOVASCULAR: Precordial exam, nondisplaced. No heaves or pericardial thrills. Rate and rhythm, regular. Heart sounds, normal S1, normal S2. No S3, no gallop, no rub. Systolic murmur, not heard. Diastolic murmur, not heard. RESPIRATORY: Respiratory effort, unlabored. Normal curvature. No thoracic deformity. No chest wall tenderness. Percussion, resonant. Auscultation, clear. No wheezes, no rales, no rhonchi. ABDOMEN: Soft, nondistended, nontender. No abdominal pain, no vomiting and normal appetite. MUSCULOSKELETAL: No joint tenderness, normal gait, normal tone. SKIN: Warm and dry. OVERALL IMPRESSION: This is not heart failure. This is all asthmatic bronchitis. At this time, no other cardiac workup or treatment is necessary. TRANSINT:[id number] Voice Confirmation ID: [id number] DOCUMENT ID: [id number] CONSULT REPORT [id number] GAMAL VÁZQUEZ JEFFREY MD at 1431 CC: [id number] DICTATION DATE: 07/27/19 1113 RADIO SCRIPT WRITER: 07/27/19 1204 DIS IN 07/28/19 [place] [id number] [place] [id number]
== END 2019-07-28 12:15 | disposition home or self-care (01) | DRG 291 ==
LOC: D.ER 14:52 → D.M2 17:43 → OBSVTIME 17:46 → D.M2 07-26 19:52
PROVIDERS: Family Medicine; Family Medicine Adult Medicine; Internal Medicine Pulmonary Disease; ADMIT Internal Medicine Nephrology; ATTEND Internal Medicine Nephrology
DX: I11.0 Hypertensive heart disease with heart failure (principal); J18.9 Pneumonia, unspecified organism; J98.11 Atelectasis; I50.33 Acute on chronic diastolic (congestive) heart failure; I25.10 Atherosclerotic heart disease of native coronary artery without angina pectoris; E11.65 Type 2 diabetes mellitus with hyperglycemia; R91.1 Solitary pulmonary nodule; J45.909 Unspecified asthma, uncomplicated; I08.1 Rheumatic disorders of both mitral and tricuspid valves; Z87.01 Personal history of pneumonia (recurrent)

== ENCOUNTER 2019-09-15 09:39 | Emergency (ER) | payer MEDICARE ==
[~2019-09-15] VITALS: Ht 167.6 cm; Wt 95.5 kg
[~2019-09-15 09:39] MED LIST changes: +OMNICEF300 MG PO; +PREDNISONE10 MG PO; +ZITHROMAX250 MG PO
[2019-09-15 09:43] VITALS: Ht 167.6 cm; Wt 95.5 kg
[2019-09-15 10:43] LABS: BASOPHILS 0.4 % (0-2); EOSINOPHILS 5.9 % (0-7); HEMATOCRIT 44.2 % (42.0-54.0); HEMOGLOBIN 15.3 g/dL (13.5-17.5); IMMATURE GRANULOCYTES 0.3 % (0-5); LYMPHOCYTES 39.1 % (15-50); MCH 31.2 pg (26.0-34.0); MCHC 34.6 g/dL (31.0-37.0); MEAN PLATELET VOLUME 9.7 fL (7.4-10.4); MONOCYTES 8.6 % (2-11); NEUTROPHILS 45.7 % (40-80); RBC 4.91 10x6/uL (4.20-6.10); WBC 6.7 10x3/uL (4.8-10.8)
[2019-09-15 10:55] LABS: APTT 23.6 SECONDS (22.8-39.4); PROTIME 12.7 SECONDS (11.6-15.0)
[2019-09-15 10:57] LABS: CALC OSMOLALITY 279 mosm/kg (275-300); CALCIUM 8.4 mg/dL (8.5-10.1); CARBON DIOXIDE 33.4 mmol/L (21.0-32.0); CHLORIDE - SERUM 103 mmol/L (98-107); CREATININE - SERUM 0.7 mg/dL (0.6-1.3); POTASSIUM - SERUM 4.2 mmol/L (3.5-5.1); SODIUM 139 mmol/L (136-145); UREA NITROGEN 11 mg/dL (7-18); eGFR NON AFRICAN AMERICAN > 90 mL/min (90-120)
[2019-09-15 11:00] LABS: GLUCOSE 149 mg/dL (74-106)
[2019-09-15 11:08] LABS: ALBUMIN 3.6 g/dL (3.4-5.0); ALKALINE PHOSPHATASE 64 U/L (46-116); ALT (SGPT) 20 U/L (10-68); BILIRUBIN - TOTAL 0.64 mg/dL (0.2-1.3); CKMB 0.8 U/L (0.0-3.6); CREATINE KINASE 58 UL (21-232); PROTEIN - SERUM 6.7 g/dL (6.4-8.2); THYROID STIMULATING HORMONE 1.49 uIU/mL (0.36-3.74)
[2019-09-15 11:11] LABS: TROPONIN-I < 0.017 ng/mL (0.000-0.060)
[2019-09-15 11:40] VITALS: BP 144/70
[2019-09-15 11:46] LABS: PLATELET COUNT 157 10x3/uL (130-400); PLATELET ESTIMATE NORMAL
== END 2019-09-15 13:32 | disposition home or self-care (01) ==
LOC: D.ER 09:39
PROVIDERS: Family Medicine
DX: E11.9 Type 2 diabetes mellitus without complications (principal); I10 Essential (primary) hypertension; I25.10 Atherosclerotic heart disease of native coronary artery without angina pectoris

== ENCOUNTER 2019-12-10 21:15 | Inpatient (IN) | payer MEDICARE ==
[2019-12-10] VITALS (8 sets, daily range): BP systolic 139–195; BP diastolic 53–82
[~2019-12-10] VITALS: Ht 167.6 cm; Wt 98.2 kg
--- NOTE | ~2019-12-10 | HEMODYNAMI ---
PATIENT:GAMAL VÁZQUEZ MEDICAL RECORD: [id number] : 47 LOCATION:[facility] D.2112 ADMISSION DATE: 12/10/19 Generatedon:12/13/20199:40 Patient name: GAMAL VÁZQUEZ Patient #: [id number] SSN: DO B: 1945 Date of study: 12/13/2019 Page: Of Hemodynamic Procedure Report Patient Data Patient Demographics Procedure consent was obtained First Name: GAMAL Gender: Male Last Name: KATHIE : 1945 Patient #: [id number] Age: 74 year(s) Race: Unknown Additional ID: [id number] Contact details Address: [address] [place] [address] State: [place] City: [facility] Zip code: [address] Past Medical History Allergies Allergen Reaction Date Comments Reported Penicillins 12/13/2019 Sulfa drugs 12/13/2019 Iodine 12/13/2019 Admission Admission Data Admission Date: 12/10/2019 Admission Time: 22:04 Room #: D.2112 Lab Results Lab Result Date: 12/13/2019 Lab Result Time: 0:00 Biochemistry Name Units Result Min Max BUN mg/dl 10 --(-*--)-- 7 18 Creatinine mg/dl 1 --(--*-)-- 0.6 1.3 eGFR ml/min 78 *-(----)-- 90 120 NONAFRICAN CBC Name Units Result Min Max Hemoglobin g/dl 15 --(-*--)-- 13.5 17.5 Procedure Procedure Types Cath Procedure Diagnostic Procedure LHC LHC w/Coronaries w/Grafts Aortic Root Angiography Sedation Charges Moderate Sedation up to 15 minutes Moderate Sedation up to 30 minutes PCI Procedure AMI/SVG/BED AND BREAKFAST OPERATOR PTCA or Stent SVG-BMS/NITO Initial Hemochron ACT Test Procedure Description Procedure Date Procedure Date: 12/13/2019 Procedure Start Time: 8:54 Procedure End Time: 9:30 Procedure Staff Name Function Ambrosio Hazelton RT Monitor Lamonte Pepper MD Performing Physician Helen Bay RN Nurse Lawson Bourne RT Monitor Procedure Data Cath Procedure Fluoroscopy Diagnostic fluoroscopy Total fluoroscopy Time: 6.5 time: 6.5 min min Diagnostic fluoroscopy Total fluoroscopy dose: dose: 604.56 mGy 604.56 mGy Contrast Material Contrast Material Type Amount (ml) Isovue 370 173 Entry Location Entry Primary Successful Side Size Upsize Upsize Entry Closure Succes sful Closure Location (Fr) 1 (Fr) 2 (Fr) Remarks Device Remarks Femoral Right 5 Fr 6 Fr Exoseal artery Short Diagnostic catheters Device Type Used For End Catheter Placement MULTIPACK JL 4.0 5Fr Left Coronary catheter Angiography DIAGNOSTIC IM 5Fr SVG Angiography catheter ([id number]) DIAGNOSTIC AR MOD 5Fr SVG Angiography Catheter (304530P) DIAGNOSTIC LCB 5Fr SVG Angiography catheter (695110P) DIAGNOSTIC AR2 MOD 5 Fr SVG Angiography catheter ([id number]) MULTIPACK Pigtail 5 Fr LV Angiography catheter Procedure Complications No complications Procedure Medications Medication Administration Route Dosage 0.9% NaCl I.V. 100 ml/hr Oxygen NC 3 l/min Heparin Flush Bag added to field 2 bags (1000units/500ml NS) Lidocaine 2% added to field 20 Versed I.V. 1 mg Fentanyl I.V. 50 mcg Versed I.V. 1 mg Heparin Bolus I.V. 73432 units Fentanyl I.V. 50 mcg Plavix P.O. 600 mg Lopressor I.V. 5 mg Hemodynamics Rest HGB: 15 (g/dl) Heart Rate: 102 (bpm) Pressure Samples Time Site Value (mmHg) Purpose Heart Use Rate(bpm) 9:09 LV 167/-9,12 EDP 93 9:11 LV 170/-11,11 Pullback 95 9:11 AO 159/68(109) Pullback 95 9:16 AO 156/70(108) Snapshot 96 Gradients Valve Time Site 1 Site 2 Mean SEP/DFP Peak To Heart Use (mmHg) (sec/min) Peak Rate (mmHg) (bpm) Aortic 9:11 LV AO 14 23 11 95 170/-11,11 159/68(109) Calculations Valve P-P Mean Valve Index Valve Source Name Gradient Area Flow (cm2) Aortic 11 14 11 14 Snapshots Pre Cath Intra NCS Post Cath Vital Signs Time Heart Resp SPO2 etCO2 NIBP (mmHg) Rhythm Pain Sedation Rate (ipm) (%) (mmHg) Status Level (bpm) 8:37:55 101 23 100 13.7 180/86(125) NSR (Missing) 10(A) 8:42:23 106 19 99 19.8 161/89(144) NSR (Missing) 10(A) 8:46:48 97 22 95 0 156/81(117) NSR (Missing) 10(A) 8:51:14 96 15 96 21.4 141/75(97) NSR (Missing) 9(A) 8:55:34 99 20 97 21.4 150/76(109) NSR (Missing) 9(A) 8:59:54 99 23 98 27.5 151/83(112) NSR (Missing) 9(A) 9:04:14 97 30 97 28.2 150/83(115) NSR (Missing) 9(A) 9:08:34 96 23 98 32.1 164/83(120) NSR (Missing) 9(A) 9:12:56 95 29 98 32.1 170/87(127) NSR (Missing) 9(A) 9:17:23 98 29 98 29 169/86(128) NSR (Missing) 9(A) 9:21:45 92 37 98 17.5 184/88(122) NSR (Missing) 9(A) 9:26:15 94 27 97 16.8 192/89(135) NSR (Missing) 9(A) 9:30:49 86 18 98 10.7 183/81(139) NSR (Missing) 10(A) Medications Time Medication Route Dose Verified Delivered Reason Notes Effectiveness by by 8:39:43 0.9% NaCl I.V. 100 Helen Helen Per ml/hr Phu Phu physician RN RN 8:39:52 Oxygen NC 3 Helen Helen for low 02 l/min Phu Phu sats RN RN 8:40:04 Heparin Flush added 2 Lamonte Helen used for Bag to bags Wiley STOREY Phu procedure (1000units/500ml field RN NS) 8:40:16 Lidocaine 2% added 20ml Lamonte Helen for local to vial Wiley STOREY Phu anesthetic field RN 8:46:31 Versed I.V. 1 mg Lamonte Helen for sedation Wiley Bay RN 8:46:40 Fentanyl I.V. 50 Lamonte Helen for sedation mcg Wiley Bay RN 8:52:22 Versed I.V. 1 mg Lamonte Helen for sedation Wiley Bay RN 9:14:01 [place]. 88125 Lamonte Helen Per verified units Wiley Bay physician with dr. MANASA pepper 9:19:19 Fentanyl I.V. 50 Lamonte Helen for sedation mcg Wiley Bay RN 9:19:59 Plavix P.O. 600 Lamonte Helen Per mg Wiley Bay physician RN 9:27:43 Lopressor I.V. 5 mg Lamonte Helen for Wiley Bay hypertension energy and conservation technician Log Time Note 7:59:05 Ambrosio Ng RT(R) sent for patient. Start room use. 7:59:06 Time tracking: Regular hours (M-F 7:00 - 5:00) 7:59:11 Plan of Care:Hemodynamics will remain stable., Cardiac rhythm will remain stable., Comfort level will be maintained., Respiratory function will remain adequate., Patient/ family verbilizes understanding of procedure., Procedure tolerated without complication., Recovers from procedure without complications.. 7:59:29 H&P Date Dictated: 12/10/2019 Within 30 days and on chart.. 8:04:59 Lab results completed and on chart. 8:05:03 Risk of Mortality: 0.1 8:05:06 Risk of blood transfusion: 0.1 8:05:09 Risk of BEAN: 0.1 8:06:02 Lab Result : eGFR NONAFRICAN 78 ml/min 8:06:02 Lab Result : Hemoglobin 15 g/dl 8:06:02 Lab Result : BUN 10 mg/dl 8:06:02 Lab Result : Creatinine 1 mg/dl 8:23:03 Patient received from PCU to CCL 3 Alert and oriented. Tansferred to table in Supine position. 8:23:05 Signed procedure consent form obtained from patient. 8:23:06 Correct patient and procedure confirmed by team. 8:23:06 Warm blankets applied, and frannie hugger turned on for patient comfort. 8:23:07 ECG and BP/O2 sat monitors applied to patient. 8:27:19 Previous problem with sedation/anesthesia? No ? 8:27:21 Snore? Yes 8:27:22 Sleep apnea? No 8:27:23 Deviated septum? No 8:27:25 Opens mouth fully? Yes 8:27:26 Sticks out tongue? Yes 8:27:30 Airway obstruction? No ? 8:27:33 Dentures? No ? 8:27:39 Patient diabetic? Yes. 8:27:41 If diabetic: On Metformin? Yes 8:28:18 Patient allergic to Penicillins 8:28:26 Patient allergic to Sulfa drugs 8:28:31 Patient allergic to Iodine 8:30:56 Maximum allowable contrast dose (3.7 X eGFR X 0.75)216.45 ml. 8:36:37 Vital chart was started 8:39:43 0.9% NaCl 100 ml/hr I.V. was administered by Helen Bay RN; Per physician; Verbal order read back and verified. 8:39:52 Oxygen 3 l/min NC was administered by Helen Bay RN; for low 02 sats; Verbal order read back and verified. 8:40:04 Heparin Flush Bag (1000units/500ml NS) 2 bags added to field was administered by Helen Bay RN; used for procedure; Verbal order read back and verified. 8:40:16 Lidocaine 2% 20ml vial added to field was administered by Helen Bay RN; for local anesthetic; Verbal order read back and verified. 8:44:17 Baseline sample Acquired. 8:44:22 Rhythm: sinus tachycardia 8:44:24 Pre-procedure instructions explained to patient. 8:44:24 Full Disclosure recording started 8:44:25 Pre-op teaching completed and patient verbalized understanding. 8:44:30 Family in patients room. 8:44:32 Patient NPO since Midnight. 8:44:35 Is the patient allergic to Iodine/contrast media? Yes. 8:44:36 Was the patient premedicated? Yes 8:44:44 Is patient on blood thinner?No 8:44:48 ----Pre-sedation anethsthesia assessment.---- 8:44:52 Pre procedure: right dorsailis pedis pulse 1+ Palpable, but thready & weak; easily obliterated 8:44:56 Patient pain scale 0/10 ?. 8:45:15 IV started by Helen Bay RN inleft forearm with a 22 gauge IV catheter with 0.9% NaCl at KVO. 8:45:47 Right groin area was prepped with chlora-prep and draped in sterile fashion 8:45:48 Sharps counted by scrub and verified by R.N. 8:45:48 Alarms reviewed by R. N. 8:45:50 Final Timeout: patient, procedure, and site verified with staff and physician. All members of the team are in agreement. 8:45:50 --------ALL STOP TIME OUT------ 8:45:50 Physician arrived 8:45:52 Right groin site verified by team. 8:45:56 Fire Safety Assessment: A--An alcohol-based skin anteseptic being used preoperatively., C--Open oxygen or nitrous oxide is being used., D--An ESU, laser, or fiber-optic light is being used. 8:46:00 Physical assessment completed. ASA score P 2 - A patient with mild systemic disease as per Lamonte Pepper MD. 8:46:16 2) 60-89 Mildly reduced kidney function, and other findings (as for stage 1) point to kidney disease. 8:46:20 Sedation plan: IV Moderate Sedation Medication:Versed, Fentanyl 8:46:31 Versed 1 mg I.V. was administered by Helen Bay RN; for sedation; Verbal order read back and verified. 8:46:40 Fentanyl 50 mcg I.V. was administered by Helen Bay RN; for sedation; Verbal order read back and verified. 8:46:43 Procedure type changed to Cath procedure, Diagnostic procedure, LHC, LHC w/Coronaries w/Grafts, Aortic Root Angiography, Sedation Charges, Moderate Sedation up to 15 minutes, Moderate Sedation up to 30 minutes, PCI procedure, AMI/SVG/BED AND BREAKFAST OPERATOR PTCA or Stent, SVG-BMS/NITO Initial, Hemochron ACT Test 8:49:31 Use device set Femoral Dx 8:49:57 ACIST Syringe (18618) opened to sterile field. 8:49:58 Bag Decanter (2002) opened to sterile field. 8:49:59 Medline Cath Pack ([id number]) opened to sterile field. 8:50:01 ACIST Hand Control (21523) opened to sterile field. 8:50:02 ACIST Manifold (88718) opened to sterile field. 8:50:03 Tegaderm 4 x 4 (1626W) opened to sterile field. 8:50:03 DIAGNOSTIC Multipack 5Fr catheter set (VK3264) opened to sterile field. 8:50:06 SHEATH 5FR Chappell (CTE928) opened to sterile field. 8:50:07 EMERALD Guide Wire (502-302) opened to sterile field. 8:50:19 Zero performed for pressure channel P1 8:52:22 Versed 1 mg I.V. was administered by Helen Bay RN; for sedation; Verbal order read back and verified. 8:54:30 Procedure started. 8:54:41 Local anesthetic to right femoral artery with Lidocaine 2% by Lamonte Pepper MD.INITIAL ACCESS ONLY 8:54:48 A 5 Fr sheath was inserted into the Right Femoral artery 8:57:17 A MULTIPACK JL 4.0 5Fr catheter was advanced over the wire and used for Left Coronary Angiography. 8:57:21 LCA angiography performed. 8:58:06 Catheter exchanged over wire. 8:58:32 A DIAGNOSTIC IM 5Fr catheter (339412Y) was advanced over the wire and used for SVG Angiography. 8:58:37 ORTEGA to LAD angiography performed. 9:00:46 Catheter exchanged over wire. 9:01:17 A DIAGNOSTIC AR MOD 5Fr Catheter ([id number]) was advanced over the wire and used for SVG Angiography. 9:01:50 RCA angiography performed. 9:02:31 Catheter exchanged over wire. 9:02:47 A DIAGNOSTIC LCB 5Fr catheter ([id number]) was advanced over the wire and used for SVG Angiography. 9:05:00 SVG to Circ angiography performed. 9:05:17 Catheter exchanged over wire. 9:05:43 A DIAGNOSTIC AR2 MOD 5 Fr catheter ([id number]) was advanced over the wire and used for SVG Angiography. 9:06:29 SVG to Diag angiography performed. 9:07:10 ACCDominant side:Left 9:07:16 SVG to Circ angiography performed. 9:08:19 Catheter exchanged over wire. 9:09:00 A MULTIPACK Pigtail 5 Fr catheter was advanced over the wire and used for LV Angiography. 9:09:54 LV angiography performed. 9::56 LV gram done using DIETRICH 9:: EF : 50 % 9:10:03 LV hemodynamics recorded. 9:: Injector settings: Ml/sec: 10, Volume: 20, 9::26 SHEATH 6FR Chappell (EKY542) opened to sterile field. 9::27 INFLATOR Merit BasixCompak (IB2191) opened to sterile field. 9:14:01 Heparin Bolus 47662 units I.V. was administered by Helen Bay RN; Per physician; verified with dr. pepper Verbal order read back and verified. 9:14:13 Aortic Root visualized 9:15:14 Sheath upsized to a 6 Fr Short. 9:15:19 ACC Pre-intervention ALEN Flow is 3. 9:15:33 Pre [facility] 9:15:42 6 Fr AR 2.0 guide catheter was inserted over the wire 9:17:09 MINAMO 300 wire advanced. 9:19:19 Fentanyl 50 mcg I.V. was administered by Helen Bay RN; for sedation; Verbal order read back and verified. 9:19:59 Plavix 600 mg P.O. was administered by Helen Bay RN; Per physician; Verbal order read back and verified. 9:21:43 Place stent Inflation Number: 1 A TARSHA OTW 4.0 x 22 stent ([id number]) was prepped and advanced across the Aorta Left -> Dist CX 75. The stent was deployed at 14 ALCIDES for 0:26 (min:sec) . 9:22:32 Stent catheter was removed intact over wire. 9:22:35 Wire removed. 9:22:36 Guide catheter removed. 9:22:41 Procedure ended.(Physican Out) 9:23:21 Contrast amount:Isovue 370 173ml. 9:23:44 Fluoroscopy time 06.50 minutes. 9:24:02 Fluoroscopy dose: 604.56 mGy 9:24:02 Flurop Dose total: 604.56 9:24:09 Dose Area Product 4450.57 mGy/cm. 9:24:31 Sheath removed intact; hemostasis achieved with Exoseal to the Right Femoral artery. 9:24:33 Sharps counted by scrub and verified by R.N. 9:24:40 Maximum allowable dose exceeded? No. 9:25:18 EXOSEAL 6Fr (EX600) opened to sterile field. 9:27:43 Lopressor 5 mg I.V. was administered by Helen Bay RN; for hypertension; Verbal order read back and verified. 9:29:12 Insertion/operative site no bleeding no hematoma. 9:29:18 Post-op/insertion site Right Femoral artery dressed using a 4 x 4 and Tegaderm. 9:29:23 Post right femoral artery:stable 9:29:27 Post Procedure Pulses reassessed and unchanged 9:29:30 Post procedure: right dorsailis pedis pulse 2+ Normal; easily identifiable; not easily obliterated. 9:29:34 Post-procedure physical assessment completed. ASA score P 2 - A patient with mild systemic disease as per Lamonte Pepper MD. 9:29:37 Post procedure rhythm: unchanged. 9:29:38 Post procedure instruction explained to patient.Patient verbalizes understanding. 9:29:39 Procedure and supply charges have been captured, reviewed, submitted and are correct. 9:29:45 Procedure Complication : No complications 9:29:55 Vital chart was stopped 9:30:02 [facility] Findings: MVD- PCI performed (see procedure note) 9:30:04 See physician's report for complete and final results. 9:30:04 Operative report dictated upon procedure completion. 9:30:08 Report given to PCU. 9:30:14 Patient transfered to PCU with Bed. 9:30:20 Full Disclosure recording stopped 9:30:20 Procedure ended. 9:30:37 ACC-PCI Only Patient was given prescriptions, or instructed by Lamonte Pepper MD to start/continue the following medications upon discharge: Plavix 9:30:38 End room use (Document Last) 9::45 ACT drawn and resulted at TO HIGH seconds. (normal therapeutic range 180-240 seconds). Intervention Summary Intervention Notes Time ActionType Lesion and Equipment Action# Pressure Duration Attributes Used 9:21:43 Place stent Aorta Left TARSHA OTW 4.0 1 14 00:26 -> Dist CX x 22 stent ([id number]) Device Usage Item Name Manufacture Quantity Catalog Hospital Part Current Mini mal Lot# / Number Charge Number Stock Stock Serial# Code ACIST Syringe Acist 1 44441 830544 301151 413765 20 (95501) Medical Systems Inc Bag Decanter Microtek 1 486681 53524 972561 5 () Medical Inc. Medline Cath Medline 1 [id number] 367240 91941 563699 5 Pack ([id number]) ACIST Hand Acist 1 28853 223753 471919 336585 5 Control Medical (95904) Systems Inc ACIST Acist 1 92049 530621 877084 633219 5 Manifold Medical (23418) Systems Inc DIAGNOSTIC Cardinal 1 [id number] 117725 51489 806336 30 Multipack 5Fr Health catheter set (JL0810) Tegaderm 4 x 3M 1 1626W 874922 812339 816562 5 4 (1626W) SHEATH 5FR Terumo 1 WAD671 488141 879587 949653 5 Chappell (AVU462) EMERALD Guide Cardinal 1 502-455 755939 387609 898906 5 Wire Health (502-455) MULTIPACK JL Cardinal 1 219881 5 4.0 5Fr Health catheter DIAGNOSTIC IM Cardinal 1 [id number] 472547 080999 189661 5 5Fr catheter Health (305410M) DIAGNOSTIC AR Cardinal 1 983503T 997866 684798 821456 15 MOD 5Fr Health Catheter (761264H) DIAGNOSTIC Cardinal 1 236383Q 940370 853777 623350 5 LCB 5Fr Health catheter (002192T) DIAGNOSTIC Cardinal 1 467431G 925135 145533 810395 20 AR2 MOD 5 Fr Health catheter (295795K) MULTIPACK Cardinal 1 694302 5 Pigtail 5 Fr Health catheter SHEATH 6FR Terumo 1 KNP306 209416 404399 716662 40 Chappell (OTC753) INFLATOR Merit 1 FK5616 735646 631445 010283 15 [facility] Medical BasixCompak (PM3686) TARSHA OTW 4.0 Medtronic 1 [id number] 633385 6351487 681434 5 [id number] x 22 stent ([id number]) EXOSEAL 6Fr Cardinal 1 EX600 168371 323737 151048 10 (EX600) Health Signature Audit [facility] Stage Time Signature Unsigned Intra-Procedure 12/13/2019 Helen 9:34:20 AM Phu RN Intra-Procedure 12/13/2019 Lamonte Pepper MD 9:37:42 AM Intra-Procedure 12/13/2019 Lamonte Pepper MD 9:40:20 AM [facility] [address] [place] [address]
[2019-12-10 21:45] LABS: BASOPHILS 0.5 % (0-2); EOSINOPHILS 8.6 % (0-7); HEMATOCRIT 43.6 % (42.0-54.0); HEMOGLOBIN 14.6 g/dL (13.5-17.5); IMMATURE GRANULOCYTES 0.1 % (0-5); MCH 30.2 pg (26.0-34.0); MCHC 33.5 g/dL (31.0-37.0); MCV 90.3 fL (80.0-100.0); MEAN PLATELET VOLUME 8.4 fL (7.4-10.4); MONOCYTES 11.9 % (2-11); NEUTROPHILS 37.9 % (40-80); PLATELET COUNT 156 10x3/uL (130-400); RBC 4.83 10x6/uL (4.20-6.10); RDW 13.1 % (11.5-14.5); WBC 7.5 10x3/uL (4.8-10.8)
[2019-12-10 21:54] LABS: APTT 32.5 SECONDS (22.8-39.4); INR 1.02 (0.85-1.17); PROTIME 13.3 SECONDS (11.6-15.0)
[2019-12-10 21:55] LABS: CALC OSMOLALITY 279 mosm/kg (275-300); CALCIUM 8.7 mg/dL (8.5-10.1); CARBON DIOXIDE 30.9 mmol/L (21.0-32.0); CHLORIDE - SERUM 100 mmol/L (98-107); D-DIMER-QUANTITATIVE 0.74 ug/mLFEU (0.20-0.54); GLUCOSE 165 mg/dL (74-106); POTASSIUM - SERUM 3.9 mmol/L (3.5-5.1); SODIUM 138 mmol/L (136-145); UREA NITROGEN 12 mg/dL (7-18); eGFR NON AFRICAN AMERICAN 78 mL/min (90-120)
--- NOTE | 2019-12-10 22:08 | NUR ---
PT REPORTS DECREASE IN CP FROM 10/10 TO 6/10 AFTER RECEIVING 1 NTG. RN ADMINISTERED SECOND NITRO AT THIS TIME.
[2019-12-10 22:11] LABS: ALBUMIN 3.3 g/dL (3.4-5.0); ALKALINE PHOSPHATASE 62 U/L (46-116); ALT (SGPT) 23 U/L (10-68); BILIRUBIN - TOTAL 0.66 mg/dL (0.2-1.3); C-REACTIVE PROTEIN 2.5 mg/dL (0.0-0.9); LIPASE 633 U/L (73-393); PRO BNP 115 pg/mL (0-125); PROTEIN - SERUM 6.9 g/dL (6.4-8.2); THYROID STIMULATING HORMONE 7.19 uIU/mL (0.36-3.74); TROPONIN-I < 0.017 ng/mL (0.000-0.060)
--- NOTE | 2019-12-10 22:13 | NUR ---
PT RATES PAIN 4/10 AT THIS TIME.
--- NOTE | 2019-12-10 22:44 | NUR ---
PT LEFT ED VIA STRETCHER FOR CT
[2019-12-10 22:48] LABS: ERYTHROCYTE SEDIMENTATION RATE 11 mm/hr (0-20)
--- NOTE | 2019-12-10 22:52 | NUR ---
PT RETURNED FROM CT VIA STRETCHER.
--- NOTE | 2019-12-10 23:56 | NUR ---
PT ARRIVED VIA W/C. NO DISTRESS NOTED.
[2019-12-11 00:04] LABS: APPEARANCE CLEAR (CLEAR); BILIRUBIN NEGATIVE (NEGATIVE); COLOR YELLOW (YELLOW); GLUCOSE NEGATIVE (NEGATIVE); KETONE NEGATIVE (NEGATIVE); NITRITE NEGATIVE (NEGATIVE); PROTEIN NEGATIVE (NEGATIVE); SPECIFIC GRAVITY 1.015 (1.005-1.020); UROBILINOGEN NORMAL (NORMAL)
[2019-12-11 00:08] VITALS: BP 161/63; BMI 35.6
[2019-12-11] MEDS ORDERED: GLUCOPHAGE500 MG PO (00:23)
[2019-12-11] MEDS ORDERED: CLEOCIN HCL300 MG PO (00:24)
[2019-12-11] MEDS ORDERED: TYLENOL W/CODEI1 TAB PO (00:26)
[2019-12-11] MEDS ORDERED: BREO ELLIPTA 11 EACH INH (00:27)
[2019-12-11] MEDS ORDERED: METOPROLOL TART50 MG PO (00:27)
[2019-12-11] MEDS ORDERED: MECLIZINE HCL25 MG PO (00:28)
--- NOTE | 2019-12-11 01:32 | NUR ---
ADMISSION ASSESSMENT. HISTORY AND HOME MED LIST COMPLETED BY 0030 HRS. PT STATES PAIN IS NOW 3/10 WHICH IS HIS USUAL. IV TO LFA SL. LUNGS DIMINISHED IN BASES BILAT. PT HAS HAD A STERNUMECTOMY. VSS. SB PER CM HR 54. RED AREA APPROX 15CM X 18 CM TO L JAVED WITH NUMEROUS SCABS NOTED. PT AND FAMILY STATE IT LOOKS MUCH BETTER. EXPLAINED TO PT RATIONALE FOR BED ALARM. AT 0130 PT STAES HE FEELS HIS BS IS LOW. BS 67. APPLE JUICE AND PEANUT BUTTER WITH CRACKERS GIVEN PER REQUEST. CALL LIGHT WITHIN REACH.
[2019-12-11 03:08] LABS: BASOPHILS 0.3 % (0-2); EOSINOPHILS 6.7 % (0-7); HEMATOCRIT 42.9 % (42.0-54.0); HEMOGLOBIN 14.3 g/dL (13.5-17.5); IMMATURE GRANULOCYTES 0.1 % (0-5); LYMPHOCYTES 39.8 % (15-50); MCHC 33.3 g/dL (31.0-37.0); MCV 90.1 fL (80.0-100.0); MEAN PLATELET VOLUME 9.1 fL (7.4-10.4); MONOCYTES 13.3 % (2-11); NEUTROPHILS 39.8 % (40-80); PLATELET COUNT 182 10x3/uL (130-400); RBC 4.76 10x6/uL (4.20-6.10); RDW 13.2 % (11.5-14.5); WBC 9.6 10x3/uL (4.8-10.8)
[2019-12-11 03:25] LABS: ALBUMIN 3.2 g/dL (3.4-5.0); ALKALINE PHOSPHATASE 60 U/L (46-116); ALT (SGPT) 19 U/L (10-68); CALC OSMOLALITY 280 mosm/kg (275-300); CALCIUM 8.8 mg/dL (8.5-10.1); CARBON DIOXIDE 34.1 mmol/L (21.0-32.0); CHLORIDE - SERUM 104 mmol/L (98-107); CREATININE - SERUM 0.8 mg/dL (0.6-1.3); GLUCOSE 68 mg/dL (74-106); POTASSIUM - SERUM 3.4 mmol/L (3.5-5.1); PRO BNP 111 pg/mL (0-125); PROTEIN - SERUM 6.6 g/dL (6.4-8.2); SODIUM 142 mmol/L (136-145); TROPONIN-I < 0.017 ng/mL (0.000-0.060); UREA NITROGEN 12 mg/dL (7-18); eGFR NON AFRICAN AMERICAN > 90 mL/min (90-120)
[2019-12-11 04:10] VITALS: BP 130/51
--- NOTE | 2019-12-11 04:19 | NUR ---
PT AWAKE; DENIES ANY DISCOMFORT. SR UP X2, CALL LIGHT WITHIN REACH.
--- NOTE | 2019-12-11 06:16 | NUR ---
BS RCHECKED THIS AM WITH 111 RESULT. VSS THIS AM. SR/SB PER CM. PT STATES FEELS MUCH IMPROVED. NEEDS MET; WILL CONTINUE TO MONITOR.
[2019-12-11 10:48] VITALS: BP 162/52
[2019-12-11 14:21] VITALS: Ht 167.6 cm; Wt 98.2 kg
[2019-12-11 14:25] VITALS: BP 104/62
[2019-12-11 14:44] LABS: BASOPHILS 0.3 % (0-2); EOSINOPHILS 5.6 % (0-7); HEMATOCRIT 43.4 % (42.0-54.0); HEMOGLOBIN 14.6 g/dL (13.5-17.5); IMMATURE GRANULOCYTES 0.2 % (0-5); LYMPHOCYTES 34.4 % (15-50); MCH 30.4 pg (26.0-34.0); MCHC 33.6 g/dL (31.0-37.0); MCV 90.4 fL (80.0-100.0); MEAN PLATELET VOLUME 8.7 fL (7.4-10.4); MONOCYTES 10.2 % (2-11); NEUTROPHILS 49.3 % (40-80); PLATELET COUNT 157 10x3/uL (130-400); RDW 13.3 % (11.5-14.5)
[2019-12-11 14:47] LABS: WBC 6.1 10x3/uL (4.8-10.8)
[2019-12-11 15:02] LABS: ALT (SGPT) 23 U/L (10-68); CALCIUM 8.5 mg/dL (8.5-10.1); CARBON DIOXIDE 29.4 mmol/L (21.0-32.0); CHLORIDE - SERUM 103 mmol/L (98-107); CHOLESTEROL, TOTAL 174 mg/dL (0-200); CREATININE - SERUM 0.7 mg/dL (0.6-1.3); HDL CHOLESTEROL 35 mg/dL (32-96); LDL CHOLESTEROL 117 mg/dL (0-100); LDL-HDL RATIO 3.3 ratio (1.5-3.5); SODIUM 141 mmol/L (136-145); TRIGLYCERIDE 111 mg/dL (30-200); UREA NITROGEN 10 mg/dL (7-18); eGFR NON AFRICAN AMERICAN > 90 mL/min (90-120)
[2019-12-11 15:05] LABS: CALC OSMOLALITY 283 mosm/kg (275-300); GLUCOSE 171 mg/dL (74-106); POTASSIUM - SERUM 4.2 mmol/L (3.5-5.1)
[2019-12-11 18:27] VITALS: BP 144/52
--- NOTE | 2019-12-11 19:27 | NUR ---
ALERT AND OX4 PT DENIES NEEDS HAS GOOD UNDERSTANDINMG OF UPCOMING AM PROCEDURE BED IS LOW AND LOCKED AND CALL LIGHT IS WITH PT
[2019-12-11 20:00] VITALS: BP 152/65
[2019-12-12] VITALS: BP 111/60
[2019-12-12 04:00] VITALS: BP 157/51
[2019-12-12 04:37] LABS: CALC OSMOLALITY 285 mosm/kg (275-300); CALCIUM 8.9 mg/dL (8.5-10.1); CARBON DIOXIDE 33.3 mmol/L (21.0-32.0); CHLORIDE - SERUM 103 mmol/L (98-107); GLUCOSE 172 mg/dL (74-106); SODIUM 142 mmol/L (136-145); UREA NITROGEN 10 mg/dL (7-18); eGFR NON AFRICAN AMERICAN 78 mL/min (90-120)
[2019-12-12 04:40] LABS: BASOPHILS 0.5 % (0-2); EOSINOPHILS 7.9 % (0-7); HEMATOCRIT 45.3 % (42.0-54.0); IMMATURE GRANULOCYTES 0.2 % (0-5); LYMPHOCYTES 39.8 % (15-50); MCH 29.9 pg (26.0-34.0); MCHC 33.1 g/dL (31.0-37.0); MCV 90.4 fL (80.0-100.0); MEAN PLATELET VOLUME 8.8 fL (7.4-10.4); MONOCYTES 10.8 % (2-11); NEUTROPHILS 40.8 % (40-80); PLATELET COUNT 182 10x3/uL (130-400); RBC 5.01 10x6/uL (4.20-6.10); RDW 13.4 % (11.5-14.5); WBC 6.6 10x3/uL (4.8-10.8)
--- NOTE | 2019-12-12 04:59 | NUR ---
I have reviewed this patient and I concur with the Shift Assessment completed by the Licensed Practical Nurse today this shift.
--- NOTE | 2019-12-12 07:30 | NUR ---
PT RECEIVED ALERT AND ORIENTED, GETTING BREATHING TREATMENT. NPO FOR HEART CATH THIS MORNING. STILL NEEDING SPUTUM CULTURE, CUP AT BEDSIDE.
[2019-12-12 12:01] VITALS: BP 173/60
[2019-12-12 16:00] VITALS: BP 151/64
--- NOTE | 2019-12-12 19:26 | NUR ---
PT ALERT WITH FANILY PRESENT PT ASKED FOR FOOD AND TEA WE DISCUSSED CATH AND NPO AT IN BED IS LOW AND LOCKED CALL LIGHT IN REACH
[2019-12-12 20:16] VITALS: BP 174/80
[2019-12-13] VITALS (10 sets, daily range): BP systolic 125–179; BP diastolic 56–87
[2019-12-13 06:03] LABS: BASOPHILS 0 % (0-2); EOSINOPHILS 0 % (0-7); HEMATOCRIT 44.9 % (42.0-54.0); HEMOGLOBIN 15.4 g/dL (13.5-17.5); IMMATURE GRANULOCYTES 0.1 % (0-5); LYMPHOCYTES 12.1 % (15-50); MCH 30.3 pg (26.0-34.0); MCHC 34.3 g/dL (31.0-37.0); MEAN PLATELET VOLUME 8.8 fL (7.4-10.4); MONOCYTES 5.6 % (2-11); NEUTROPHILS 82.2 % (40-80); PLATELET COUNT 207 10x3/uL (130-400); RBC 5.09 10x6/uL (4.20-6.10); RDW 13.1 % (11.5-14.5)
[2019-12-13 06:20] LABS: MCV 88.2 fL (80.0-100.0); WBC 9.5 10x3/uL (4.8-10.8)
[2019-12-13 06:25] LABS: ANION GAP 13.1 mmol/L (8-16); CALCIUM 8.9 mg/dL (8.5-10.1); CARBON DIOXIDE 26.6 mmol/L (21.0-32.0); CREATININE - SERUM 1.1 mg/dL (0.6-1.3)
[2019-12-13 06:26] LABS: POTASSIUM - SERUM 4.7 mmol/L (3.5-5.1)
--- NOTE | 2019-12-13 08:18 | NUR ---
WENT TO FLUSH IV TO GIVE BENADRYL AND SOLUMEDROL. IV INFILTRATED. DC'D LEFT AC 20G IV WITH CATH INTACT. X1 ATTEMPT TO START A NEW IV AND BOWLING ALLEY MANAGER CAME TO GET PT. THEY STATED THEY WILL GET IV ON PT AND NOT TO WORRY ABOUT IT. I VERBALIZED UNDERSTANDING. SENT NS WITH PT. PT LEFT VIA BED TO BOWLING ALLEY MANAGER.
--- NOTE | 2019-12-13 09:55 | NUR ---
RETURNED FROM FULL STACK PYTHON DEVELOPER VIA BED. LAYING FLAT. ALER AND ORINETED. ON ROOM AIR. VS STABLE. RIGHT GROIN SOFT, SHOWS NO S/S OF HEMATOMA, DRESSING C/D/I. PP CHECKED. DAUGHTER AT BEDSIDE. PT STATES HE HAS NO FURTHER NEEDS AT THIS TIME. BED LOW. CL IN REACH. BEDSIDE REPORT GIVEN TO THIS NURSE BY FULL STACK PYTHON DEVELOPER. THEY STATED THEY INSERTED A 20G IV IN LEFT AC AND IT IS NOW INFUSING NS AT 100ML/HR. DR. NETTLES LEFT HEART CATH X1 VEIN GRAFT CIRC CLOSED WITH 6 MEXICAN EXOSEAL TO THE RIGHT GROIN. THEY GAVE 2 VERSED, 100 FENTANYL, 10,000 UNITS OF HEPARIN, 600 PLAVIX, AND 5MG IV LOPRESSOR. I VERBALIZED UNDERSTANDING.
--- NOTE | 2019-12-13 10:10 | NUR ---
RIGHT GROIN SOFT, SHOWS NO S/S OF HEMATOMA, DRESSING C/D/I. PP CHECKED. WILL CONTINUE TO MONITOR. PT STATES HE HAS NO FURTHER NEEDS AT THIS TIME. DAUGHTER AT BEDSIDE. VS STBALE. ON ROOM AIR. PT LAYIN FLAT. BED LOW. CL IN REACH.
--- NOTE | 2019-12-13 10:35 | NUR ---
RIGHT GROIN SOFT, SHOWS NO S/S OF HEMATOMA, DRESSING C/D/I. PP CHECKED. VS STABLE. WILL CONTINUE TO MONITOR. PT STATES HE HAS NO FURTHER NEEDS AT THIS TIME.
--- NOTE | 2019-12-13 10:57 | NUR ---
RIGHT GROIN SOFT, SHOWS NO S/S OF HEMATOMA, DRESSING C/D/I. PP CHECKED. WILL CONTINUE TO MONITOR. PT STATES HE HAS NO FURTHER NEEDS AT THIS TIME. DAUGHTER AT BEDSIDE.
--- NOTE | 2019-12-13 11:45 | NUR ---
RIGHT GROIN SOFT, SHOWS NO S/S OF HEMATOMA, DRESSING C/D/I. PP CHECKED. WILL CONTINUE TO MONITOR. PT STATES HE HAS NO FURTHER NEEDS AT THIS TIME. DAUGHTER AT BEDSIDE. LAYING FLAT. BED LOW. CL IN REACH.
[2019-12-13] MEDS ORDERED: PLAVIX75 MG PO (12:27)
[2019-12-13] MEDS ORDERED: FLUTICASONE PRO16 GM NASAL (12:28)
[2019-12-13] MEDS ORDERED: SINGULAIR10 MG PO (12:28)
--- NOTE | 2019-12-13 12:55 | NUR ---
PT HAVING N/V. GAVE ZOFRAN IV. WILL CONTINUE TO MONITOR. PT DENIES NEED FOR CRACKERS OR [place] [employer]. DAUGHTER AT BEDSIDE.
--- NOTE | 2019-12-13 14:17 | NUR ---
RAISED HOB SLOWLY. RIGHT GROIN SOFT/ SHOWS NO S/S OF HEMATOMA. PT STILL HAVING SOME NAUSEA BUT NO VOMITING. WILL CONTINUE TO MONITOR. DAUGHTER AT BEDSIDE.
--- NOTE | 2019-12-13 16:08 | MORECARE ---
CASE MANAGEMENT DISCHARGE SUMMARY PATIENT: GAMAL VÁZQUEZ UNIT: [id number] ADM DATE: 12/10/19 AGE: 74 : 46 SEX: M ROOM/BED: D.2112 AUTHOR: SHERRON BUENO PHYSICIAN: REFERRING PHYSICIAN: CATHI UNDERWOOD MD DATE OF SERVICE: 12/13/19 Discharge Plan Patient Name: GAMAL VÁZQUEZ [facility] : 1945 Planned Disposition: Home Anticipated Discharge Date: 12/13/19 Discharge Date: Expected LOS: 3 Initial Reviewer: [email or web address] Initial Review Date: 12/13/2019 Generated: 12/13/19 5:07 pm DCPIA - Discharge Planning Initial Assessment Updated by [email or web address]: Shakeel Zhang on 12/13/19 4:06 pm * Is the patient Alert and Oriented? Yes * How many steps to enter\exit or inside your home? NONE * PCP DR. ARCHER * Pharmacy [facility] * Preadmission Environment Home with Family * ADLs Independent * Equipment Cane Nebulizer Walker * Other Equipment NO MEDICAL EQUIPMENT PROVIDER PREFERNCE * List name and contact numbers for known caregivers / representatives who currently or will assist patient after discharge: AYAH GIBSON (TINKI), * Verbal permission to speak to the caregivers and representatives has been obtained from the patient. N/A * Community resources currently utilized None * Please name any agencies selected above. NONE * Additional services required to return to the preadmission environment? No * Can the patient safely return to the preadmission environment? Yes * Has this patient been hospitalized within the prior 30 days at any hospital? No Patient Name: GAMAL VÁZQUEZ Page [id number] at 1608 All edits/amendments must be made on the electronic document DICTATION DATE: 12/13/191606 MERCHANDISING SPECIALIST: GALINDO 12/13/191606 RPT#: [id number] DC DATE: STATUS: ADM IN [facility] [address] [place] [address] END OF REPORT
--- NOTE | 2019-12-13 16:15 | MORECARE ---
CASE MANAGEMENT DISCHARGE SUMMARY PATIENT: GAMAL VÁZQUEZ UNIT: [id number] ADM DATE: 12/10/19 AGE: 74 : 46 SEX: M ROOM/BED: D.2112 AUTHOR: XIMENA,DOC PHYSICIAN: REFERRING PHYSICIAN: CATHI UNDERWOOD MD DATE OF SERVICE: 12/13/19 Discharge Plan Patient Name: GAMAL VÁZQUEZ Facility: [facility]:[place] : 1945 Planned Disposition: Home Anticipated Discharge Date: 12/13/19 Discharge Date: Expected LOS: 3 Initial Reviewer: [email or web address] Initial Review Date: 12/13/2019 Generated: 12/13/19 5:15 pm Comments DCP- Discharge Planning Updated by [id number]: Shakeel Zhang on 12/13/19 3:[address] Patient Name: GAMAL VÁZQUEZ Encounter No: [id number] : 1945 Primary Insurance: [employer] CHOICE PPO MCR ADVANT Anticipated DC Date: 12-13-2019 Planned Disposition: Home DCP follow-up note: CM MET WITH PT IN ROOM TO DISCUSS DISCHARGE PLANNING AND NEEDS. PT REPORTS LIVING AT HOME INDEPENDENTLY WITH ADULT DAUGHTER. PT HAS CANE, NEBULIZER AND WALKER WITH NO MEDICAL EQUIPMENT PROVIDER PREFERENCE. PT HAS NO OUTSIDE SERVICES ASSISTING IN THE HOME. CM DISCUSSED AVAILABILITY OF HOME HEALTH, REHAB SERVICES AND MEDICAL EQUIPMENT. PT DENIES DISCHARGE NEEDS, REPORTS HIS DAUGHTER WILL PICK HIM UP FOR DISCHARGE HOME. IMPORTANT MESSAGE FROM MEDICARE PROVIDED AND EXPLAINED. SENIOR CONTROLS ENGINEER NURSE NOTIFIED. DANILO Muñoz DCPIA - Discharge Planning Initial Assessment Updated by [id number]: Shakeel Zhang on 12/13/19 4:06 pm * Is the patient Alert and Oriented? Yes * How many steps to enter\exit or inside your home? NONE * PCP DR. ARCHER * Pharmacy [facility] [address] * Preadmission Environment Home with Family * ADLs Independent * Equipment Cane Nebulizer Walker * Other Equipment NO MEDICAL EQUIPMENT PROVIDER PREFERNCE * List name and contact numbers for known caregivers / representatives who currently or will assist patient after discharge: AYAH GIBSON (TINKI), * Verbal permission to speak to the caregivers and representatives has been obtained from the patient. N/A * Community resources currently utilized None * Please name any agencies selected above. NONE * Additional services required to return to the preadmission environment? No * Can the patient safely return to the preadmission environment? Yes * Has this patient been hospitalized within the prior 30 days at any hospital? No Last DP export: 12/13/19 3:08 p Patient Name: GAMAL VÁZQUEZ Page [id number] at 1615 All edits/amendments must be made on the electronic document DICTATION DATE: 12/13/19 161 LITIGATOR: GALINDO 12/13/19 1615 RPT#: [id number] DC DATE: STATUS: ADM IN [facility] [address] [place] [address] END OF REPORT
--- NOTE | 2019-12-13 16:38 | NUR ---
RIGHT GROIN SOFT AND DRESSING IS C/D/I. PP CHECKED. PT HAS NO FURTHER NEEDS AT THIS TIME. BED LOW. CL IN REACH.
--- NOTE | 2019-12-13 16:39 | NUR ---
I have reviewed this patient and I concur with the Shift Assessment completed by the Licensed Practical Nurse today this shift.
--- NOTE | 2019-12-13 19:35 | NUR ---
REPORT RECEIVED, WILL CONTINUE POC. PATIENT IS AAOX4, LYING IN SEMI-FOWLERS POSITION. NO S/S OF DISTRESS OBSERVED, RR EVEN AND UNLABORED ON ROOM AIR. PIV TO LT AC, SL, PATENT, DRSG C/D/I. PATIENT DENIES NEEDS AT THIS TIME. CL IN REACH, BED LOCKED AND LOWERED. WILL CTM.
[2019-12-14] VITALS: BP 125/53
[2019-12-14 05:01] VITALS: BP 160/60
[2019-12-14 06:11] LABS: BASOPHILS 0.1 % (0-2); EOSINOPHILS 0.2 % (0-7); HEMATOCRIT 47.1 % (42.0-54.0); IMMATURE GRANULOCYTES 0.3 % (0-5); LYMPHOCYTES 12.5 % (15-50); MCH 30.2 pg (26.0-34.0); MEAN PLATELET VOLUME 9.1 fL (7.4-10.4); NEUTROPHILS 79.9 % (40-80); PLATELET COUNT 203 10x3/uL (130-400); RBC 5.29 10x6/uL (4.20-6.10); RDW 13.6 % (11.5-14.5)
[2019-12-14 06:13] LABS: WBC 11.9 10x3/uL (4.8-10.8)
[2019-12-14 06:35] LABS: CALC OSMOLALITY 284 mosm/kg (275-300); CALCIUM 8.8 mg/dL (8.5-10.1); CARBON DIOXIDE 28.4 mmol/L (21.0-32.0); CHLORIDE - SERUM 100 mmol/L (98-107); CREATININE - SERUM 0.9 mg/dL (0.6-1.3); GLUCOSE 327 mg/dL (74-106); SODIUM 135 mmol/L (136-145); UREA NITROGEN 17 mg/dL (7-18); eGFR NON AFRICAN AMERICAN 88 mL/min (90-120)
--- NOTE | 2019-12-14 08:06 | MORECARE ---
CASE MANAGEMENT DISCHARGE SUMMARY PATIENT: GAMAL VÁZQUEZ UNIT: [id number] ADM DATE: 12/10/19 AGE: 74 : 46 SEX: M ROOM/BED: D.2112 AUTHOR: XIMENA,DOC PHYSICIAN: REFERRING PHYSICIAN: CATHI UNDERWOOD MD DATE OF SERVICE: 12/14/19 Discharge Plan Patient Name: GAMAL VÁZQUEZ Facility: [facility]:[place] : 1945 Planned Disposition: Home Anticipated Discharge Date: 12/14/19 Discharge Date: Expected LOS: 4 Initial Reviewer: [email or web address] Initial Review Date: 12/13/2019 Generated: 12/14/19 9:05 am Comments DCP- Discharge Planning Updated by [id number]: Shakeel Zhang on 12/13/19 3:[address] Patient Name: GAMAL VÁZQUEZ Encounter No: [id number] : 1945 Primary Insurance: [employer] CHOICE PPO MCR ADVANT Anticipated DC Date: 12-13-2019 Planned Disposition: Home DCP follow-up note: CM MET WITH PT IN ROOM TO DISCUSS DISCHARGE PLANNING AND NEEDS. PT REPORTS LIVING AT HOME INDEPENDENTLY WITH ADULT DAUGHTER. PT HAS CANE, NEBULIZER AND WALKER WITH NO MEDICAL EQUIPMENT PROVIDER PREFERENCE. PT HAS NO OUTSIDE SERVICES ASSISTING IN THE HOME. CM DISCUSSED AVAILABILITY OF HOME HEALTH, REHAB SERVICES AND MEDICAL EQUIPMENT. PT DENIES DISCHARGE NEEDS, REPORTS HIS DAUGHTER WILL PICK HIM UP FOR DISCHARGE HOME. IMPORTANT MESSAGE FROM MEDICARE PROVIDED AND EXPLAINED. INSIDE WIREMAN NURSE NOTIFIED. DANILO Muñoz DCPIA - Discharge Planning Initial Assessment Updated by [id number]: Shakeel Zhang on 12/13/19 4:06 pm * Is the patient Alert and Oriented? Yes * How many steps to enter\exit or inside your home? NONE * PCP DR. ARCHER * Pharmacy [facility] [address] * Preadmission Environment Home with Family * ADLs Independent * Equipment Cane Nebulizer Walker * Other Equipment NO MEDICAL EQUIPMENT PROVIDER PREFERNCE * List name and contact numbers for known caregivers / representatives who currently or will assist patient after discharge: AYAH GIBSON (TINKI), * Verbal permission to speak to the caregivers and representatives has been obtained from the patient. N/A * Community resources currently utilized None * Please name any agencies selected above. NONE * Additional services required to return to the preadmission environment? No * Can the patient safely return to the preadmission environment? Yes * Has this patient been hospitalized within the prior 30 days at any hospital? No Last DP export: 12/13/19 3:15 p Patient Name: GAMAL VÁZQUEZ Page 61087 at 0806 All edits/amendments must be made on the electronic document DICTATION DATE: 12/14/19804 CARD FOLDER: DM 12/14/19804 RPT#: [id number] DC DATE: STATUS: ADM IN [facility] [address] [place] [address] END OF REPORT
[2019-12-14 10:22] VITALS: BP 157/81
--- NOTE | 2019-12-14 11:47 | MORECARE ---
CASE MANAGEMENT DISCHARGE SUMMARY PATIENT: GAMAL VÁZQUEZ UNIT: [id number] ADM DATE: 12/10/19 AGE: 74 : 47 SEX: M ROOM/BED: D.2112 AUTHOR: XIMENA,DOC PHYSICIAN: REFERRING PHYSICIAN: CATHI UNDERWOOD MD DATE OF SERVICE: 12/14/19 Discharge Plan Patient Name: GAMAL VÁZQUEZ Facility: [facility]:[place] : 1945 Planned Disposition: Home Anticipated Discharge Date: 12/14/19 Discharge Date: Expected LOS: 4 Initial Reviewer: [email or web address] Initial Review Date: 12/13/2019 Generated: 12/14/19 12:47 pm Comments DCP- Discharge Planning Updated by [id number]: Shakeel Zhang on 12/13/19 3:[address] Patient Name: GAMAL VÁZQUEZ Encounter No: [id number] : 1945 Primary Insurance: [employer] CHO[employer] PPO MCR ADVANT Anticipated DC Date: 12-13-2019 Planned Disposition: Home DCP follow-up note: CM MET WITH PT IN ROOM TO DISCUSS DISCHARGE PLANNING AND NEEDS. PT REPORTS LIVING AT HOME INDEPENDENTLY WITH ADULT DAUGHTER. PT HAS CANE, NEBULIZER AND WALKER WITH NO MEDICAL EQUIPMENT PROVIDER PREFERENCE. PT HAS NO OUTSIDE SERVICES ASSISTING IN THE HOME. CM DISCUSSED AVAILABILITY OF HOME HEALTH, REHAB SERVICES AND MEDICAL EQUIPMENT. PT DENIES DISCHARGE NEEDS, REPORTS HIS DAUGHTER WILL PICK HIM UP FOR DISCHARGE HOME. IMPORTANT MESSAGE FROM MEDICARE PROVIDED AND EXPLAINED. ILLUMINATOR NURSE NOTIFIED. DANILO Muñoz DCPIA - Discharge Planning Initial Assessment Updated by [id number]: Shakeel Zhang on 12/13/19 4:06 pm * Is the patient Alert and Oriented? Yes * How many steps to enter\exit or inside your home? NONE * PCP DR. ARCHER * Pharmacy [facility] [address] * Preadmission Environment Home with Family * ADLs Independent * Equipment Cane Nebulizer Walker * Other Equipment NO MEDICAL EQUIPMENT PROVIDER PREFERNCE * List name and contact numbers for known caregivers / representatives who currently or will assist patient after discharge: AYAH GIBSON (TINKI), * Verbal permission to speak to the caregivers and representatives has been obtained from the patient. N/A * Community resources currently utilized None * Please name any agencies selected above. NONE * Additional services required to return to the preadmission environment? No * Can the patient safely return to the preadmission environment? Yes * Has this patient been hospitalized within the prior 30 days at any hospital? No Coverage Notice Reviewer: [id number] Nancy Beckford [place] Notice Issued Date-Time: 12/13/2019 14:55 Notice Type: IM Discharge Notice Notice Delivered To: Patient Relationship to Patient: Design Painter Name: Delivery Method: HAND - Hand Delivered Мария Days: Prior Verbal Notification: Recipient Understood Notice: Yes Recipient Signature: Yes Med Rec Note Co-signed by Attending: Coverage Notice Comment: Last DP export: 12/14/19 7:06 a Patient Name: GAMAL VÁZQUEZ Page 31114 at 1147 All edits/amendments must be made on the electronic document DICTATION DATE: 12/14/19 1147 SERVICE CAR DRIVER: GALINDO 12/14/19 1147 RPT#: [id number] DC DATE: STATUS: ADM IN [facility] [address] [place] [address] END OF REPORT
[2019-12-14] MEDS ORDERED: BAYER CHEWABLE81 MG PO (11:49)
--- NOTE | 2019-12-14 12:42 | NUR ---
IV AND TELEMETRY DCD. DC PLANS GIVEN. UNDERSTANDING VOICED. ESCORTED TO CAR BY W/C.
== END 2019-12-14 12:43 | disposition home or self-care (01) | DRG 247 ==
LOC: D.ER 21:15 → D.M2 22:04
PROVIDERS: Family Medicine; Internal Medicine Cardiovascular Disease; ADMIT Internal Medicine Nephrology; ATTEND Internal Medicine Nephrology
PROC: 4A023N7 Measurement of Cardiac Sampling and Pressure, Left Heart, Percutaneous Approach (ICD-10-PCS; 2019-12-13)
PROC: B2121ZZ Fluoroscopy of Single Coronary Artery Bypass Graft using Low Osmolar Contrast (ICD-10-PCS; 2019-12-13)
PROC: B2111ZZ Fluoroscopy of Multiple Coronary Arteries using Low Osmolar Contrast (ICD-10-PCS; 2019-12-13)
PROC: B2151ZZ Fluoroscopy of Left Heart using Low Osmolar Contrast (ICD-10-PCS; 2019-12-13)
PROC: B3101ZZ Fluoroscopy of Thoracic Aorta using Low Osmolar Contrast (ICD-10-PCS; 2019-12-13)
PROC: B2181ZZ Fluoroscopy of Left Internal Mammary Bypass Graft using Low Osmolar Contrast (ICD-10-PCS; 2019-12-13)
PROC: 027034Z Dilation of Coronary Artery, One Artery with Drug-eluting Intraluminal Device, Percutaneous Approach (ICD-10-PCS; principal; 2019-12-13 08:30)
DX: I25.110 Atherosclerotic heart disease of native coronary artery with unstable angina pectoris (principal); I10 Essential (primary) hypertension; K80.20 Calculus of gallbladder without cholecystitis without obstruction; E87.6 Hypokalemia; J30.9 Allergic rhinitis, unspecified; E11.65 Type 2 diabetes mellitus with hyperglycemia

== ENCOUNTER → 2020-04-24 12:10 | Outpatient (CLI) | payer MEDICARE ==
[2019-12-11 14:21] VITALS: BMI 35.6
[~2020-04-24 12:10] MED LIST changes: +BREO ELLIPTA 11 EACH INH; +CLEOCIN HCL300 MG PO; +FLUTICASONE PRO16 GM NASAL; +GLUCOPHAGE500 MG PO; +MECLIZINE HCL25 MG PO; +METOPROLOL TART50 MG PO; +PLAVIX75 MG PO; +SINGULAIR10 MG PO; +TYLENOL W/CODEI1 TAB PO
== END | disposition home or self-care (01) ==
LOC: D.LABREF 12:10
PROVIDERS: ATTEND Internal Medicine Pulmonary Disease
DX: Z11.59 Encounter for screening for other viral diseases (principal)

== ENCOUNTER → 2020-04-25 14:20 | Outpatient (CLI) | payer MEDICARE ==
[2019-12-11 14:21] VITALS: BMI 35.6
== END | disposition home or self-care (01) ==
LOC: D.CT 04-17 13:30 → D.RT 04-17 14:00 → D.CT 14:20
PROVIDERS: ATTEND Internal Medicine Pulmonary Disease
DX: J45.909 Unspecified asthma, uncomplicated (principal); R91.1 Solitary pulmonary nodule

== ENCOUNTER → 2020-05-08 07:51 | Outpatient (CLI) | payer MEDICARE ==
[2019-12-11 14:21] VITALS: BMI 35.6
== END | disposition home or self-care (01) ==
LOC: D.RT 07:51
PROVIDERS: ATTEND Internal Medicine Pulmonary Disease
DX: J45.909 Unspecified asthma, uncomplicated (principal); R91.1 Solitary pulmonary nodule

== ENCOUNTER 2021-01-25 12:36 | Inpatient (IN) | payer MEDICARE ==
[~2021-01-25] VITALS: Ht 167.6 cm; Wt 107.0 kg
[2021-01-25 13:30] LABS: CALC OSMOLALITY 277 mosm/kg (275-300); CALCIUM 8.9 mg/dL (8.5-10.1); CARBON DIOXIDE 32.8 mmol/L (21.0-32.0); CHLORIDE - SERUM 99 mmol/L (98-107); POTASSIUM - SERUM 4.1 mmol/L (3.5-5.1); SODIUM 135 mmol/L (136-145); UREA NITROGEN 14 mg/dL (7-18); eGFR NON AFRICAN AMERICAN 78 mL/min (90-120)
[2021-01-25 13:31] LABS: GLUCOSE 219 mg/dL (74-106)
[2021-01-25 13:38] LABS: ALBUMIN 3.3 g/dL (3.4-5.0); ALKALINE PHOSPHATASE 73 U/L (30-120); ALT (SGPT) 17 U/L (10-68); BILIRUBIN - TOTAL 1.22 mg/dL (0.2-1.3); PROTEIN - SERUM 6.8 g/dL (6.4-8.2)
[2021-01-25 13:54] LABS: BASOPHILS 0.3 % (0-2); EOSINOPHILS 0.5 % (0-7); HEMATOCRIT 48.6 % (42.0-54.0); HEMOGLOBIN 15.4 g/dL (13.5-17.5); IMMATURE GRANULOCYTES 0.2 % (0-5); LYMPHOCYTES 24.7 % (15-50); MCH 29.4 pg (26.0-34.0); MCHC 31.7 g/dL (31.0-37.0); MCV 92.7 fL (80.0-100.0); MEAN PLATELET VOLUME 8.9 fL (7.4-10.4); NEUTROPHIL ABS# 6.53 10x3/uL (1.78-5.38); NEUTROPHILS 64.3 % (40-80); PLATELET COUNT 168 10x3/uL (130-400); RBC 5.24 10x6/uL (4.20-6.10); RDW 14.2 % (11.5-14.5); WBC 10.1 10x3/uL (4.8-10.8)
[2021-01-25 16:47] VITALS: BP 116/50
--- NOTE | 2021-01-25 17:41 | NUR ---
JUST REC'D TO ROOM 2238 AT THIS TIME VIA WC. AWAKE AND ALERT. RESP EVEN AND UNLABORED WITH NO DISTRESS NOTED. CAN EXPRESS NEEDS AND WANTS NO C/O NOTED OR VOICED AT THIS TIME. ASSISTANCE NEEDS WITH TRANSFERS. ORIENTED TO CALL LIGHT.
[2021-01-25 17:59] VITALS: BP 114/61; BMI 38.1
[2021-01-25 19:39] LABS: INR 1.2 (0.85-1.17); PROTIME 14.1 SECONDS (11.6-15.0)
[2021-01-25 19:41] LABS: D-DIMER-QUANTITATIVE 0.61 ug/mLFEU (0.20-0.54)
[2021-01-25 20:00] VITALS: BP 114/61
[2021-01-25 21:10] LABS: ERYTHROCYTE SEDIMENTATION RATE 6 mm/hr (0-20)
--- NOTE | 2021-01-26 03:13 | NUR ---
HAS RESTED FAIR THIS SHIFT. NO COMPLAINTS OF CHEST PAIN VOICED. MORPHINE AND ZOFRAN GIVEN IV X 1 FOR COMPLAINTS OF HURTING ALL OVER AND NAUSEA. ENCOURAGED TO CALL FOR ASSISTANCE WITH AMBULATION. CALL LIGHT IN EASY REACH. SAFETY ROUNDS MADE.
[2021-01-26 04:37] LABS: BASOPHILS 0.1 % (0-2); EOSINOPHILS 1.5 % (0-7); HEMATOCRIT 46.8 % (42.0-54.0); HEMOGLOBIN 14.4 g/dL (13.5-17.5); IMMATURE GRANULOCYTES 0.2 % (0-5); LYMPHOCYTE ABS# 1.72 10x3/uL (1.32-3.57); LYMPHOCYTES 19.6 % (15-50); MCHC 30.8 g/dL (31.0-37.0); MCV 94.4 fL (80.0-100.0); MEAN PLATELET VOLUME 8.9 fL (7.4-10.4); MONOCYTES 9.9 % (2-11); NEUTROPHIL ABS# 6.04 10x3/uL (1.78-5.38); NEUTROPHILS 68.7 % (40-80); PLATELET COUNT 163 10x3/uL (130-400); RBC 4.96 10x6/uL (4.20-6.10); RDW 14.3 % (11.5-14.5); WBC 8.8 10x3/uL (4.8-10.8)
[2021-01-26 04:53] LABS: ALBUMIN 2.9 g/dL (3.4-5.0); ALKALINE PHOSPHATASE 63 U/L (30-120); ALT (SGPT) 15 U/L (10-68); BILIRUBIN - TOTAL 0.88 mg/dL (0.2-1.3); CALC OSMOLALITY 276 mosm/kg (275-300); CALCIUM 8.3 mg/dL (8.5-10.1); CARBON DIOXIDE 35.5 mmol/L (21.0-32.0); CHLORIDE - SERUM 100 mmol/L (98-107); CREATININE - SERUM 0.9 mg/dL (0.6-1.3); GLUCOSE 251 mg/dL (74-106); PROTEIN - SERUM 6.1 g/dL (6.4-8.2); SODIUM 135 mmol/L (136-145); UREA NITROGEN 11 mg/dL (7-18); eGFR NON AFRICAN AMERICAN 88 mL/min (90-120)
[2021-01-26 04:54] LABS: POTASSIUM - SERUM 4.8 mmol/L (3.5-5.1)
[2021-01-26 05:02] LABS: INR 1.17 (0.85-1.17); PROTIME 13.8 SECONDS (11.6-15.0)
[2021-01-26 05:03] LABS: APTT 35.8 SECONDS (22.8-39.4)
[2021-01-26 08:54] VITALS: BP 115/70
[2021-01-26 12:32] VITALS: BMI 38.1
--- NOTE | 2021-01-26 13:35 | NUR ---
I have reviewed this patient and I concur with the Shift Assessment completed by the Licensed Practical Nurse today this shift.
[2021-01-26 14:48] VITALS: BP 141/69
[2021-01-26 17:51] VITALS: BP 141/63; BP 167/88
[2021-01-26 20:00] VITALS: BP 135/57
--- NOTE | 2021-01-26 23:23 | NUR ---
PT IN AWAKE AND ALERT. NO SIGNS OF DISTRESS AT THEM MOMENT, CALL LIGHT WITHIN REACH.
[2021-01-27] VITALS: BP 122/64
--- NOTE | 2021-01-27 01:53 | NUR ---
PT LASIX MED IV SCHEDULED HE REFUSE, HE HAD AN REACTION WHEN MED WAS GIVEN IV DEVELOP ITCHING AND HAD TO GET BENADRYL. HE HAS TAKEN LASIX TABLETS BEFORE.
[2021-01-27 04:00] VITALS: BP 135/61
[2021-01-27 04:06] LABS: BASOPHILS 0.3 % (0-2); EOSINOPHILS 3.2 % (0-7); HEMOGLOBIN 13.3 g/dL (13.5-17.5); IMMATURE GRANULOCYTES 0.3 % (0-5); LYMPHOCYTE ABS# 1.21 10x3/uL (1.32-3.57); LYMPHOCYTES 19.4 % (15-50); MCH 29.6 pg (26.0-34.0); MCHC 30.9 g/dL (31.0-37.0); MCV 95.6 fL (80.0-100.0); MEAN PLATELET VOLUME 8.8 fL (7.4-10.4); MONOCYTES 11.4 % (2-11); NEUTROPHIL ABS# 4.08 10x3/uL (1.78-5.38); NEUTROPHILS 65.4 % (40-80); PLATELET COUNT 101 10x3/uL (130-400); RDW 14.3 % (11.5-14.5); WBC 6.2 10x3/uL (4.8-10.8)
--- NOTE | 2021-01-27 04:19 | NUR ---
PT PULLED IV IN RIGHT HAND, CATHERER INTACT. NEW IV PLACEMENT IN LEFT HAND, 22G NS@100ML AND ZOFRAN DRIP.
[2021-01-27 04:21] LABS: ALBUMIN 3.4 g/dL (3.4-5.0); ALKALINE PHOSPHATASE 46 U/L (30-120); ALT (SGPT) 14 U/L (10-68); BILIRUBIN - TOTAL 1.14 mg/dL (0.2-1.3); CALCIUM 7.9 mg/dL (8.5-10.1); CARBON DIOXIDE 34.9 mmol/L (21.0-32.0); CHLORIDE - SERUM 99 mmol/L (98-107); CREATININE - SERUM 0.9 mg/dL (0.6-1.3); POTASSIUM - SERUM 4.7 mmol/L (3.5-5.1); PROTEIN - SERUM 5.6 g/dL (6.4-8.2); SODIUM 136 mmol/L (136-145); UREA NITROGEN 12 mg/dL (7-18); VANCOMYCIN - TROUGH 9.3 ug/mL (10.0-20.0); eGFR NON AFRICAN AMERICAN 88 mL/min (90-120)
[2021-01-27 04:22] LABS: CALC OSMOLALITY 277 mosm/kg (275-300); GLUCOSE 203 mg/dL (74-106)
[2021-01-27 09:27] VITALS: BP 163/73; BP 163/93
[2021-01-27 15:22] VITALS: BP 172/75
[2021-01-27 18:00] VITALS: BP 155/66
[2021-01-27 20:00] VITALS: BP 161/68
--- NOTE | 2021-01-28 03:09 | NUR ---
HAS RESTED FAIR THIS SHIFT. NO COMPLAINTS VOICED. PATIET UP STANDING AT BEDSIDE USING URINAL DURING ROUNDS EARLIER. ASSISTED PATIENT BACK TO BED HE IS VERY WEAK. ENCOURAGED TO CALL FOR ASSISTANCE WITH GETTING OUT OF BED. CALL LIGHT IN EASY REACH. SAFETY ROUNDS MADE.
[2021-01-28 04:00] VITALS: BP 129/63
--- NOTE | 2021-01-28 07:38 | NUR ---
LYING IN BEDAWAKE. PATIENT IS WITHOUT NEEDS.
[2021-01-28 08:29] VITALS: BP 156/70
[2021-01-28 09:38] LABS: ALBUMIN 4.1 g/dL (3.4-5.0); ALKALINE PHOSPHATASE 53 U/L (30-120); ALT (SGPT) 16 U/L (10-68); BILIRUBIN - TOTAL 1.48 mg/dL (0.2-1.3); CALC OSMOLALITY 273 mosm/kg (275-300); CALCIUM 8.1 mg/dL (8.5-10.1); CHLORIDE - SERUM 97 mmol/L (98-107); CREATININE - SERUM 0.7 mg/dL (0.6-1.3); GLUCOSE 181 mg/dL (74-106); POTASSIUM - SERUM 4.7 mmol/L (3.5-5.1); PROTEIN - SERUM 6.7 g/dL (6.4-8.2); SODIUM 135 mmol/L (136-145); UREA NITROGEN 9 mg/dL (7-18); eGFR NON AFRICAN AMERICAN > 90 mL/min (90-120)
--- NOTE | 2021-01-28 09:56 | NUR ---
PATIENT IN BED RESTING. FREE FROM SIGNS OF DISTRESS. BED LOW POSITION, CALL LIGHT IN REACH. WILL CONTINUE TO MONITOR.
[2021-01-28 09:58] LABS: BASOPHILS 0.2 % (0-2); EOSINOPHILS 0.3 % (0-7); HEMATOCRIT 45.3 % (42.0-54.0); HEMOGLOBIN 13.8 g/dL (13.5-17.5); IMMATURE GRANULOCYTES 0.2 % (0-5); LYMPHOCYTE ABS# 1.27 10x3/uL (1.32-3.57); LYMPHOCYTES 12.4 % (15-50); MCH 29.2 pg (26.0-34.0); MCHC 30.5 g/dL (31.0-37.0); MEAN PLATELET VOLUME 8.8 fL (7.4-10.4); MONOCYTES 9.5 % (2-11); NEUTROPHIL ABS# 7.94 10x3/uL (1.78-5.38); NEUTROPHILS 77.4 % (40-80); RBC 4.72 10x6/uL (4.20-6.10); RDW 14.2 % (11.5-14.5)
[2021-01-28 10:11] LABS: PLATELET COUNT 139 10x3/uL (130-400); WBC 10.3 10x3/uL (4.8-10.8)
[2021-01-28 12:43] VITALS: BP 168/82
[2021-01-28 16:23] VITALS: BP 144/74
[2021-01-28 20:00] VITALS: BP 159/67
[2021-01-29] VITALS: BP 141/62
[2021-01-29 04:00] VITALS: BP 169/80
--- NOTE | 2021-01-29 04:12 | NUR ---
AWAKE MUCH OF THIS SHIFT. NO COMPLAINTS VOICED. HAS VOIDED 900MLS THUS FAR THIS SHIFT. TOLERATING IV ANTIBIOTICS WELL. ENCOURAGED TO CALL FOR ASSISTANCE WITH AMBULATION. CALL LIGHT IN EASY REACH. SAFETY ROUNDS MADE.
[2021-01-29 07:12] LABS: BASOPHILS 0.2 % (0-2); EOSINOPHILS 0.3 % (0-7); HEMATOCRIT 44.5 % (42.0-54.0); HEMOGLOBIN 13.8 g/dL (13.5-17.5); IMMATURE GRANULOCYTES 0.2 % (0-5); LYMPHOCYTE ABS# 1.16 10x3/uL (1.32-3.57); LYMPHOCYTES 12.5 % (15-50); MCH 29.3 pg (26.0-34.0); MCV 94.5 fL (80.0-100.0); MONOCYTES 8.5 % (2-11); NEUTROPHIL ABS# 7.28 10x3/uL (1.78-5.38); NEUTROPHILS 78.3 % (40-80); PLATELET COUNT 137 10x3/uL (130-400); RBC 4.71 10x6/uL (4.20-6.10); WBC 9.3 10x3/uL (4.8-10.8)
[2021-01-29 07:19] LABS: ALBUMIN 4.4 g/dL (3.4-5.0); ALKALINE PHOSPHATASE 48 U/L (30-120); ALT (SGPT) 17 U/L (10-68); BILIRUBIN - TOTAL 2.06 mg/dL (0.2-1.3); CALC OSMOLALITY 282 mosm/kg (275-300); CALCIUM 8.6 mg/dL (8.5-10.1); CARBON DIOXIDE 39.4 mmol/L (21.0-32.0); CHLORIDE - SERUM 95 mmol/L (98-107); CREATININE - SERUM 0.7 mg/dL (0.6-1.3); GLUCOSE 207 mg/dL (74-106); POTASSIUM - SERUM 4.1 mmol/L (3.5-5.1); SODIUM 139 mmol/L (136-145); UREA NITROGEN 11 mg/dL (7-18); eGFR NON AFRICAN AMERICAN > 90 mL/min (90-120)
[2021-01-29 09:28] VITALS: BP 186/88
[2021-01-29 12:37] VITALS: BP 179/85
--- NOTE | 2021-01-29 12:39 | NUR ---
Nutrition follow-up: Pt reports his appetite is improving. Pt ate 75% of breakfast this morning. Pt states the ABX are causing a bad taste in his mouth. Pt is very SOB during visit. Has O2 in place. Diet order: consistent CHO PO intake 50-75% of meals Labs reviewed; glucose > 200 mg/dl most readings Wt: 236# Pt requested Vanilla or sstrawberry Glucerna Shake. RDN ordered it BID. RDN follow-up: 02/01/21
[2021-01-29 15:17] LABS: C-REACTIVE PROTEIN 14.9 mg/dL (0.0-0.9)
[2021-01-29 16:42] LABS: CREATINE KINASE 66 UL (21-232); TROPONIN-I 0.038 ng/mL (0.000-0.060)
[2021-01-29 16:56] LABS: SARS-CoV-2 ANTIGEN NEGATIVE- SARS-COV-2 (NEGATIVE)
--- NOTE | 2021-01-29 17:28 | NUR ---
MULTIPLE IV ATTEMPTS BY MANY STAFF MEMBERS UNABLE TO START IV. BEEPING DOCTOR. REMAINS ON BIPAP AT THIS TIME. AIRBORNE ISOLATION. TO BE MOVED TO ANOTHER ROOM AND UNIT. CALL LIGHT IN REACH
[2021-01-29 18:34] LABS: ERYTHROCYTE SEDIMENTATION RATE 9 mm/hr (0-20)
--- NOTE | 2021-01-29 19:45 | NUR ---
ADMIT FROM MED SURGE TO ROOM 2140 PLACED INTO COVID ISOLATION--PT IS AWAKE, ALERT, ORIENTED. RESP THERAPY PLACING BIPAP ON PT AT THIS TIME. PT HAS NO IV ACCESS SEVERAL NURSES HAVE TRIED W/O SUCCESS PRIOR TO ADMIT. ORIENTATION TO ROOM GIVEN--CALL GUTIERREZ NEAR. MONITORING CONTINUES.
[2021-01-29 20:00] VITALS: BP 150/61
[2021-01-29 22:54] LABS: CKMB 0.3 U/L (0.0-3.6); CREATINE KINASE 39 UL (21-232); TROPONIN-I 0.036 ng/mL (0.000-0.060)
[2021-01-30] VITALS: BP 157/61
--- NOTE | 2021-01-30 00:04 | NUR ---
NEW IV STARTED TO LEFT UPPER ARM AT THIS TIME W/20GA AFTER MUTIPLE ATTEMPTS BY OTHER NURSES, PT TOLERATED ALL WELL. X-RAY INFORMED PT NOW HAS AN IV.
[2021-01-30 04:00] VITALS: BP 150/57
[2021-01-30 05:39] LABS: BASOPHILS 0.1 % (0-2); EOSINOPHILS 0.4 % (0-7); HEMATOCRIT 45.2 % (42.0-54.0); HEMOGLOBIN 13.8 g/dL (13.5-17.5); IMMATURE GRANULOCYTES 0.1 % (0-5); LYMPHOCYTE ABS# 0.72 10x3/uL (1.32-3.57); LYMPHOCYTES 8.9 % (15-50); MCH 28.9 pg (26.0-34.0); MCHC 30.5 g/dL (31.0-37.0); MCV 94.8 fL (80.0-100.0); MONOCYTES 6.4 % (2-11); NEUTROPHIL ABS# 6.83 10x3/uL (1.78-5.38); NEUTROPHILS 84.1 % (40-80); PLATELET COUNT 133 10x3/uL (130-400); RBC 4.77 10x6/uL (4.20-6.10); WBC 8.1 10x3/uL (4.8-10.8)
[2021-01-30 08:00] VITALS: BP 146/75
[2021-01-30 08:54] LABS: ALBUMIN 3.6 g/dL (3.4-5.0); ALKALINE PHOSPHATASE 47 U/L (30-120); ALT (SGPT) 16 U/L (10-68); BILIRUBIN - TOTAL 2.42 mg/dL (0.2-1.3); CALCIUM 8.8 mg/dL (8.5-10.1); CARBON DIOXIDE 39.1 mmol/L (21.0-32.0); CHLORIDE - SERUM 97 mmol/L (98-107); CREATINE KINASE 39 UL (21-232); CREATININE - SERUM 0.8 mg/dL (0.6-1.3); POTASSIUM - SERUM 4.2 mmol/L (3.5-5.1); PROTEIN - SERUM 6.6 g/dL (6.4-8.2); SODIUM 139 mmol/L (136-145); TROPONIN-I 0.037 ng/mL (0.000-0.060); UREA NITROGEN 13 mg/dL (7-18); eGFR NON AFRICAN AMERICAN > 90 mL/min (90-120)
[2021-01-30 08:57] LABS: CALC OSMOLALITY 280 mosm/kg (275-300); GLUCOSE 151 mg/dL (74-106)
[2021-01-30 09:28] LABS: CKMB 0.1 U/L (0.0-3.6)
[2021-01-30 15:31] VITALS: BP 150/57
[2021-01-30 18:26] LABS: KETONE LARGE mg/dL (NEGATIVE); NITRITE NEGATIVE (NEGATIVE)
[2021-01-30 18:27] LABS: BILIRUBIN NEGATIVE (NEGATIVE); UROBILINOGEN NORMAL mg/dL (< 2)
[2021-01-30 18:56] LABS: INFLUENZA TYPE A NEGATIVE (NEGATIVE); INFLUENZA TYPE B NEGATIVE (NEGATIVE)
[2021-01-30 20:00] VITALS: BP 158/76
[2021-01-30 21:50] VITALS: BP 158/76
[2021-01-31 04:00] VITALS: BP 158/78
[2021-01-31 06:56] LABS: BASOPHILS 0 % (0-2); EOSINOPHILS 0 % (0-7); HEMATOCRIT 43.4 % (42.0-54.0); HEMOGLOBIN 13.4 g/dL (13.5-17.5); LYMPHOCYTE ABS# 1.03 10x3/uL (1.32-3.57); LYMPHOCYTES 15.5 % (15-50); MCH 29.3 pg (26.0-34.0); MCHC 30.9 g/dL (31.0-37.0); MCV 94.8 fL (80.0-100.0); MEAN PLATELET VOLUME 8.8 fL (7.4-10.4); MONOCYTES 10.1 % (2-11); NEUTROPHIL ABS# 4.96 10x3/uL (1.78-5.38); NEUTROPHILS 74.4 % (40-80); PLATELET COUNT 146 10x3/uL (130-400); RBC 4.58 10x6/uL (4.20-6.10); WBC 6.7 10x3/uL (4.8-10.8)
[2021-01-31 07:14] LABS: ALBUMIN 4.1 g/dL (3.4-5.0); ALKALINE PHOSPHATASE 44 U/L (30-120); ALT (SGPT) 18 U/L (10-68); BILIRUBIN - TOTAL 1.62 mg/dL (0.2-1.3); CALCIUM 8.9 mg/dL (8.5-10.1); CHLORIDE - SERUM 98 mmol/L (98-107); POTASSIUM - SERUM 4.6 mmol/L (3.5-5.1); PROTEIN - SERUM 7.1 g/dL (6.4-8.2); SODIUM 139 mmol/L (136-145); VANCOMYCIN - TROUGH 16.6 ug/mL (10.0-20.0)
[2021-01-31 07:25] LABS: CREATININE - SERUM 0.7 mg/dL (0.6-1.3); eGFR NON AFRICAN AMERICAN > 90 mL/min (90-120)
[2021-01-31 07:26] LABS: GLUCOSE 256 mg/dL (74-106); UREA NITROGEN 17 mg/dL (7-18)
[2021-01-31 07:27] LABS: CALC OSMOLALITY 288 mosm/kg (275-300)
[2021-01-31 08:27] VITALS: BP 151/66
[2021-01-31 12:24] VITALS: BP 140/69
--- NOTE | 2021-01-31 15:20 | NUR ---
COVID PCR AND ANTIGEN TEST FOR COVID BOTH NEGATIVE, SPOKE WITH DR CROOK AND DR URIAS, AND JAZMINE IR. ALL AGREE TO DISCONTINUE ISOLATION.
[2021-01-31 17:01] VITALS: BP 134/62
[2021-01-31 19:10] VITALS: BP 142/62
--- NOTE | 2021-01-31 23:31 | NUR ---
BIPAP ADJUSTED PER RT TO 14/8, PT TOLERATING BETTER.
[2021-02-01] MEDS ORDERED: ULTRAM50 MG PO (02:37)
[2021-02-01 03:16] LABS: BASOPHILS 0.3 % (0-2); HEMATOCRIT 43.8 % (42.0-54.0); HEMOGLOBIN 13.4 g/dL (13.5-17.5); IMMATURE GRANULOCYTES 0.1 % (0-5); LYMPHOCYTES 15.5 % (15-50); MCH 29.1 pg (26.0-34.0); MCHC 30.6 g/dL (31.0-37.0); MEAN PLATELET VOLUME 8.8 fL (7.4-10.4); MONOCYTES 8.3 % (2-11); NEUTROPHIL ABS# 5.24 10x3/uL (1.78-5.38); NEUTROPHILS 73.8 % (40-80); PLATELET COUNT 144 10x3/uL (130-400); RBC 4.61 10x6/uL (4.20-6.10); WBC 7.1 10x3/uL (4.8-10.8)
[2021-02-01 03:45] LABS: ALKALINE PHOSPHATASE 49 U/L (30-120); CALC OSMOLALITY 289 mosm/kg (275-300); CALCIUM 9.1 mg/dL (8.5-10.1); CHLORIDE - SERUM 96 mmol/L (98-107); CKMB 0.5 U/L (0.0-3.6); CREATINE KINASE 23 UL (21-232); CREATININE - SERUM 0.8 mg/dL (0.6-1.3); GLUCOSE 261 mg/dL (74-106); MAGNESIUM - SERUM 2.4 mg/dL (1.8-2.4); POTASSIUM - SERUM 4.1 mmol/L (3.5-5.1); PROTEIN - SERUM 6.7 g/dL (6.4-8.2); SODIUM 140 mmol/L (136-145); TROPONIN-I 0.019 ng/mL (0.000-0.060); UREA NITROGEN 19 mg/dL (7-18); eGFR NON AFRICAN AMERICAN > 90 mL/min (90-120)
[2021-02-01 03:49] LABS: ALT (SGPT) 24 U/L (10-68)
[2021-02-01 03:50] LABS: CARBON DIOXIDE 44.7 mmol/L (21.0-32.0)
[2021-02-01 03:58] VITALS: BP 155/78
[2021-02-01 08:50] VITALS: BP 140/57
[2021-02-01 09:09] VITALS: Ht 167.6 cm; Wt 107.0 kg
[2021-02-01 09:13] LABS: CKMB 0.5 U/L (0.0-3.6); CREATINE KINASE 19 UL (21-232); TROPONIN-I 0.018 ng/mL (0.000-0.060)
[2021-02-01 13:24] VITALS: BP 132/64
--- NOTE | 2021-02-01 14:16 | NUR ---
Nutrition Reassessment/Follow-up: Poor appetite/PO intake but likes Glucerna (observed 100% intake of one this AM). Denies N/V. Last BM 3-4 days ago. No teeth. Diet: Diabetic PO intake: 0% x 3 yesterday No new wt; last wt: 236# (01/26) Labs noted: Glu 261, Alb 4.0 Meds noted: Humulin, Lasix, KDur, Albumin, Florajen, Protonix, Zofran, electrolyte protocol -Nutrition needs unchanged; no new wt available. -Add dental soft to current diet order. -Encourage PO intake and honor food preferences within diet restrictions. -+Glucerna with meals. -Need new wt. -RD will follow up within 3-4 days.
[2021-02-01 15:19] LABS: CKMB 0.5 U/L (0.0-3.6); CREATINE KINASE 25 UL (21-232); TROPONIN-I 0.018 ng/mL (0.000-0.060)
[2021-02-01 16:44] VITALS: BP 145/69
[2021-02-01 20:47] VITALS: BP 151/61
[2021-02-02 04:23] VITALS: BP 172/60
[2021-02-02 04:45] LABS: BASOPHILS 0.2 % (0-2); EOSINOPHILS 8.1 % (0-7); HEMATOCRIT 44.6 % (42.0-54.0); HEMOGLOBIN 13.8 g/dL (13.5-17.5); IMMATURE GRANULOCYTES 0.2 % (0-5); LYMPHOCYTE ABS# 1.13 10x3/uL (1.32-3.57); LYMPHOCYTES 24.8 % (15-50); MCH 28.8 pg (26.0-34.0); MCHC 30.9 g/dL (31.0-37.0); MCV 93.1 fL (80.0-100.0); MEAN PLATELET VOLUME 9.1 fL (7.4-10.4); MONOCYTES 8.1 % (2-11); NEUTROPHIL ABS# 2.66 10x3/uL (1.78-5.38); NEUTROPHILS 58.6 % (40-80); PLATELET COUNT 144 10x3/uL (130-400); RBC 4.79 10x6/uL (4.20-6.10); RDW 13.9 % (11.5-14.5)
[2021-02-02 04:51] LABS: WBC 4.6 10x3/uL (4.8-10.8)
[2021-02-02 05:37] LABS: ALBUMIN 4.7 g/dL (3.4-5.0); ALKALINE PHOSPHATASE 42 U/L (30-120); ALT (SGPT) 22 U/L (10-68); BILIRUBIN - TOTAL 1.88 mg/dL (0.2-1.3); CALCIUM 9.6 mg/dL (8.5-10.1); CHLORIDE - SERUM 96 mmol/L (98-107); CREATININE - SERUM 0.8 mg/dL (0.6-1.3); MAGNESIUM - SERUM 2.4 mg/dL (1.8-2.4); POTASSIUM - SERUM 3.6 mmol/L (3.5-5.1); PROTEIN - SERUM 7.4 g/dL (6.4-8.2); SODIUM 140 mmol/L (136-145); UREA NITROGEN 15 mg/dL (7-18); eGFR NON AFRICAN AMERICAN > 90 mL/min (90-120)
[2021-02-02 05:38] LABS: CALC OSMOLALITY 282 mosm/kg (275-300); GLUCOSE 161 mg/dL (74-106)
[2021-02-02 05:39] LABS: CARBON DIOXIDE 41.5 mmol/L (21.0-32.0)
--- NOTE | 2021-02-02 07:25 | NUR ---
INITIAL ROUNDS- PT RESTING COMFORTABLY IN BED, A/O X4, RESP EVEN AND NONLABORED ON 12HF. RT FA IV INFUSING NS AT 25CC/HR. SR 74 WITH FIRST DEGREE BLOCK. EMPTIED 5OOCC OF YELLOW URINE OUT OF URINAL. PT DENIES ANY OTHER NEEDS AT THIS TIME. CALL LIGHT IN REACH, NAD NOTED, WILL CONTINUE PLAN OF CARE.
[2021-02-02 08:48] VITALS: BP 170/64
--- NOTE | 2021-02-02 11:03 | NUR ---
BLOOD SUGAR OF 237, 8 UNITS GIVEN PER S/S. PT UP TO SIDE OF BED, DENIES ANY NEEDS AT THIS TIME. CALL LIGHT IN REACH.
[2021-02-02 11:31] VITALS: BP 142/75
--- NOTE | 2021-02-02 16:18 | NUR ---
BLOOD SUGAR OF 307, 12UNITS GIVEN PER S/S. PT UP TO CHAIR, DENIES ANY NEEDS AT THIS TIME. CALL LIGHT IN REACH.
[2021-02-02 16:57] VITALS: BP 158/65
[2021-02-02 22:19] VITALS: BP 180/73
--- NOTE | 2021-02-02 22:39 | NUR ---
PT LAYING SUPINE IN BED. URINAL PLACED IN BETWEEN LEGS PER PT REQUEST. UOP EMPTIED WAS 200ML. PT BS 240 TREATED WITH SLIDING SCALE ORDERS. PT IS AAOX4 AND PLEASANT. IV INTACT SALINE LOCKED. PT DENIES PAIN AND ANY OTHER NEEDS AT THIS TIME. HIGH FLOW OXYGEN AT 12L IN PLACE. WILL USE BIPAP TONIGHT ORDERED.
[2021-02-03 00:30] VITALS: BP 164/57
[2021-02-03 04:30] VITALS: BP 135/69
[2021-02-03 08:03] LABS: ALKALINE PHOSPHATASE 46 U/L (30-120); BILIRUBIN - TOTAL 1.48 mg/dL (0.2-1.3); CALC OSMOLALITY 279 mosm/kg (275-300); CALCIUM 9.8 mg/dL (8.5-10.1); CARBON DIOXIDE 39.9 mmol/L (21.0-32.0); CHLORIDE - SERUM 96 mmol/L (98-107); CREATININE - SERUM 0.7 mg/dL (0.6-1.3); GLUCOSE 171 mg/dL (74-106); MAGNESIUM - SERUM 2.5 mg/dL (1.8-2.4); POTASSIUM - SERUM 3.7 mmol/L (3.5-5.1); PROTEIN - SERUM 7.8 g/dL (6.4-8.2); SODIUM 137 mmol/L (136-145); UREA NITROGEN 17 mg/dL (7-18); eGFR NON AFRICAN AMERICAN > 90 mL/min (90-120)
[2021-02-03 08:07] LABS: ALT (SGPT) 30 U/L (10-68)
[2021-02-03 08:16] LABS: BASOPHILS 0.3 % (0-2); EOSINOPHILS 5.7 % (0-7); HEMATOCRIT 43.1 % (42.0-54.0); HEMOGLOBIN 13.7 g/dL (13.5-17.5); IMMATURE GRANULOCYTES 0.1 % (0-5); LYMPHOCYTE ABS# 1.48 10x3/uL (1.32-3.57); LYMPHOCYTES 22.2 % (15-50); MCHC 31.8 g/dL (31.0-37.0); MCV 91.3 fL (80.0-100.0); MEAN PLATELET VOLUME 9.2 fL (7.4-10.4); MONOCYTES 9.1 % (2-11); NEUTROPHIL ABS# 4.18 10x3/uL (1.78-5.38); NEUTROPHILS 62.6 % (40-80); RBC 4.72 10x6/uL (4.20-6.10)
[2021-02-03 08:17] LABS: PLATELET COUNT 175 10x3/uL (130-400); WBC 6.7 10x3/uL (4.8-10.8)
--- NOTE | 2021-02-03 08:38 | NUR ---
AM MEDS GIVEN AT THIS TIME. PT A/O X4, RESP EVEN AND NONLABORED ON 12HF. WHEN I FLUSHED IV, PT STARTED C/O OF PAIN TO SITE, D/C IV WITH CATHETER TIP INTACT. ATTEMPTED TO START NEW IV, STUCK PT ON LT FA X1 WITH NO SUCCESS. WILL HAVE ANOTHER NURSE TRY TO START IV.
--- NOTE | 2021-02-03 09:55 | NUR ---
02 98% ON 12L TURNED O2 DOWN TO 10L HF. PT RESTING COMFORTABLY IN BED, DENIES ANY NEEDS AT THIS TIME. CALL LIGHT IN REACH.
--- NOTE | 2021-02-03 11:34 | NUR ---
BLOOD SUGAR OF 242, 8UNITS GIVEN PER S/S. ALSO EMPTIED 200CC OF URINE OUT OF URINAL. PT DENIES ANY NEEDS AT THIS TIME. CALL LIGHT IN REACH.
[2021-02-03 12:49] VITALS: BP 144/66
--- NOTE | 2021-02-03 14:11 | NUR ---
PT'S O2 STAYING ABOVE 95% ON 8L HF, 02 TURNED DOWN TO 6L HF. PT RESTING COMFORTABLY IN BED, DENIES ANY NEED AT THIS TIME. CALL LIGHT IN REACH.
[2021-02-03 18:52] VITALS: BP 161/76
[2021-02-03 20:00] VITALS: BP 142/63
[2021-02-04] VITALS: BP 146/63
[2021-02-04 04:00] VITALS: BP 133/64
[2021-02-04 04:54] LABS: BASOPHILS 0.1 % (0-2); EOSINOPHILS 6.9 % (0-7); HEMATOCRIT 42.1 % (42.0-54.0); HEMOGLOBIN 13.2 g/dL (13.5-17.5); IMMATURE GRANULOCYTES 0.1 % (0-5); LYMPHOCYTE ABS# 1.48 10x3/uL (1.32-3.57); LYMPHOCYTES 22.2 % (15-50); MCH 28.6 pg (26.0-34.0); MCHC 31.4 g/dL (31.0-37.0); MCV 91.1 fL (80.0-100.0); MEAN PLATELET VOLUME 9.5 fL (7.4-10.4); MONOCYTES 12.6 % (2-11); NEUTROPHIL ABS# 3.87 10x3/uL (1.78-5.38); NEUTROPHILS 58.1 % (40-80); PLATELET COUNT 170 10x3/uL (130-400); RBC 4.62 10x6/uL (4.20-6.10); RDW 14.1 % (11.5-14.5); WBC 6.7 10x3/uL (4.8-10.8)
[2021-02-04 05:10] LABS: ALBUMIN 4.3 g/dL (3.4-5.0); ALKALINE PHOSPHATASE 44 U/L (30-120); ALT (SGPT) 31 U/L (10-68); BILIRUBIN - TOTAL 0.95 mg/dL (0.2-1.3); CALC OSMOLALITY 279 mosm/kg (275-300); CALCIUM 9.8 mg/dL (8.5-10.1); CARBON DIOXIDE 37.4 mmol/L (21.0-32.0); CHLORIDE - SERUM 96 mmol/L (98-107); CREATININE - SERUM 0.8 mg/dL (0.6-1.3); GLUCOSE 202 mg/dL (74-106); MAGNESIUM - SERUM 2.4 mg/dL (1.8-2.4); SODIUM 136 mmol/L (136-145); UREA NITROGEN 19 mg/dL (7-18); eGFR NON AFRICAN AMERICAN > 90 mL/min (90-120)
[2021-02-04 08:00] VITALS: BP 143/56
[2021-02-04 12:20] VITALS: BP 122/76
--- NOTE | 2021-02-04 16:15 | MORECARE ---
CASE MANAGEMENT DISCHARGE SUMMARY PATIENT: GAMAL VÁZQUEZ UNIT: [id number] ADM DATE: 01/25/21 AGE: 75 : 46 SEX: M ROOM/BED: D.2140 AUTHOR: SHERRON BUENO PHYSICIAN: REFERRING PHYSICIAN: PITER BRICE MD DATE OF SERVICE: 02/04/21 Discharge Plan Patient Name: GAMAL VÁZQUEZ [facility] [facility] 1945 Planned Disposition: Home Anticipated Discharge Date: Discharge Date: Expected LOS: Initial Reviewer: [email or web address] Initial Review Date: 02/04/2021 Generated: 02/04/21 5:14 pm Patient Name: GAMAL VÁZQUEZ Page [id number] at 1615 All edits/amendments must be made on the electronic document DICTATION DATE: 02/04/21 1615 MILL TENDER WASHING: GALINDO 02/04/21 1615 RPT#: [id number] DC DATE: STATUS: ADM IN [facility] [address] [place] [address] END OF REPORT
--- NOTE | 2021-02-04 16:30 | MORECARE ---
CASE MANAGEMENT DISCHARGE SUMMARY PATIENT: GAMAL VÁZQUEZ UNIT: [id number] ADM DATE: 01/25/21 AGE: 75 : 47 SEX: M ROOM/BED: D.2140 AUTHOR: XIMENADOC PHYSICIAN: REFERRING PHYSICIAN: PITER BRICE MD DATE OF SERVICE: 02/04/21 Discharge Plan Patient Name: GAMAL VÁZQUEZ Facility: [facility]:[place] : 1945 Planned Disposition: Home Anticipated Discharge Date: Discharge Date: Expected LOS: Initial Reviewer: [email or web address] Initial Review Date: 02/04/2021 Generated: 02/04/21 5:29 pm Comments DCP- Discharge Planning Updated by [id number]: Estephania Marquez on 02/04/21 2:[address] Patient Name: GAMAL VÁZQUEZ Admission Status: ER Accout number: [id number] Admission Date: 01-25-2021 : 1945 Admission Diagnosis:CELLULITIS OF LEFT LOWER LIMB Attending: PITER BRICE Current LOS: 10 Anticipated DC Date: Planned Disposition: Home Primary Insurance: [employer] [facility] PFF[facility] Discharge Planning Comments: CM met with patient to complete initial dc planning assessment. CM educated patient on the CM role and verbal consent given by patient to complete assessment. CM verified patient's address, phone number, and emergency contact phone numbers. Patient lives at home with his daughter, Kirstin. At discharge patient plans to return and feels this is a safe discharge. CM discussed availability of home health, rehab services, and medical equipment. Patient denied known discharge needs at this time. I informed him that he may need oxygen on discharge. He has had it in the past, but cannot remember the company he got it from. He states "I only want it if I really need it. JEFF for [employer] signed. I faxed a face sheet to [employer]. I encouraged home health, he declines at this time. States his sister is a retired nurse and will be with him if needed. States he will not be alone at his daughter's house. Transportation provider at discharge will be his family. CM will continue to follow and will assist as needed with dc plans/needs. Court Usher: Estephania Marquez DCPIA - Discharge Planning Initial Assessment Updated by [id number]: Estephania Marquez on 02/04/21 4:15 pm * Is the patient Alert and Oriented? Yes * How many steps to enter\\exit or inside your home? 3/0 * PCP Dr. Shukla * Pharmacy [facility] on [address] * Preadmission Environment Home with Family * ADLs Independent * Equipment Cane Nebulizer Walker * List name and contact numbers for known caregivers / representatives who currently or will assist patient after discharge: Kirstin"Kevenmelissa"[facility] - [phone] * Verbal permission to speak to the caregivers and representatives has been obtained from the patient. Yes * Community resources currently utilized None * Additional services required to return to the preadmission environment? No * Can the patient safely return to the preadmission environment? Yes * Has this patient been hospitalized within the prior 30 days at any hospital? No External Providers External Provider: [facility] Next Contact Date: Service Request Date: Service Type: Resolution: Reviewer: Comments: Coverage Notice Reviewer: [id number] - Estephania Marquez Notice Issued Date-Time: 02/04/2021 16:29 Notice Type: Patient Choice Letter Notice Delivered To: Patient Relationship to Patient: Self Clothing Patternmaker Name: Delivery Method: - Мария Days: Prior Verbal Notification: Recipient Understood Notice: Recipient Signature: Med Rec Note Co-signed by Attending: Coverage Notice Comment: Last DP export: 02/04/21 2:15 p Patient Name: GAMAL VÁZQUEZ Page [id number] at 1630 All edits/amendments must be made on the electronic document DICTATION DATE: 02/04/211628 MANAGED SERVICES SALES CONSULTANT: GALINDO 02/04/21 162 RPT#: [id number] DC DATE: STATUS: ADM IN [facility] [address] [place] [address] END OF REPORT
[2021-02-04 16:57] VITALS: BP 145/57
--- NOTE | 2021-02-04 17:14 | NUR ---
OT NOTE: PT HAD C/O OF LE PAIN. NURSING AWARE. PT COMPLETED SUPINE TO SIT WITH MIN A. PT COMPLETED ADL MOB WITH CGA USING RW. PT COMPLETED BUE AROM WITH WALKER MANAGEMENT. PT COMPLETED MELISSA SOCK WITH TOTAL A. PT COMPLETED ORAL HYGIENE WITH SETUP OF TOOTHETTE. [phone] THANK YOU,PADMINI MELENDEZ
[2021-02-04 20:00] VITALS: BP 152/72
[2021-02-05 04:00] VITALS: BP 141/71
[2021-02-05 06:28] LABS: BASOPHILS 0.5 % (0-2); EOSINOPHILS 8.6 % (0-7); HEMATOCRIT 42.3 % (42.0-54.0); HEMOGLOBIN 13.3 g/dL (13.5-17.5); IMMATURE GRANULOCYTES 0.3 % (0-5); LYMPHOCYTES 25.6 % (15-50); MCHC 31.4 g/dL (31.0-37.0); MCV 92.2 fL (80.0-100.0); MEAN PLATELET VOLUME 9.2 fL (7.4-10.4); MONOCYTES 12.1 % (2-11); NEUTROPHIL ABS# 3.51 10x3/uL (1.78-5.38); NEUTROPHILS 52.9 % (40-80); PLATELET COUNT 159 10x3/uL (130-400); RBC 4.59 10x6/uL (4.20-6.10); RDW 14.2 % (11.5-14.5); WBC 6.6 10x3/uL (4.8-10.8)
[2021-02-05 07:25] LABS: ALBUMIN 5.1 g/dL (3.4-5.0); ALKALINE PHOSPHATASE 42 U/L (30-120); BILIRUBIN - TOTAL 0.72 mg/dL (0.2-1.3); CALC OSMOLALITY 279 mosm/kg (275-300); CALCIUM 9.6 mg/dL (8.5-10.1); CARBON DIOXIDE 38.9 mmol/L (21.0-32.0); CHLORIDE - SERUM 97 mmol/L (98-107); CREATININE - SERUM 0.8 mg/dL (0.6-1.3); GLUCOSE 159 mg/dL (74-106); MAGNESIUM - SERUM 2.6 mg/dL (1.8-2.4); POTASSIUM - SERUM 4.5 mmol/L (3.5-5.1); PROTEIN - SERUM 7.5 g/dL (6.4-8.2); SODIUM 137 mmol/L (136-145); UREA NITROGEN 20 mg/dL (7-18); eGFR NON AFRICAN AMERICAN > 90 mL/min (90-120)
[2021-02-05 07:26] LABS: ALT (SGPT) 44 U/L (10-68)
[2021-02-05 09:14] VITALS: BP 143/70
--- NOTE | 2021-02-05 11:44 | NUR ---
OT NOTE: PT DOING VERY WELL TODAY. DOWN TO 5L O2; BED MOB WITH MIN/CGA. EOB SITTING WITH GOOD BALANCE; SIMPLE GROOMING WITH SET UP; ABLE TO MELISSA GOWN WITH SETUP; IN ROOM AMBULATION WITH WALKER AND CGA. FUNCTIONAL TRANSFERS WITH MIN/CGA; ABLE TO GET BACK IN BED WITHOUT ASSIST. SAMARA MURPHY, OTR/L [phone]
--- NOTE | 2021-02-05 13:26 | NUR ---
Nutrition Follow-up: Appetite improving. Reports eating >50% of breakfast this AM. Drinking 2-3 Glucerna/day. Intermittent nausea without vomiting but states that this is a chronic problem. Diet: Diabetic, Dental Soft, Glucerna TID No new wt; last wt: 236# (01/26) Last BM: 02/04 Labs noted: Glu 159, Mg 2.6, Alb 5.1 Meds noted: Lantus, Humulin, Lasix, KDur, Albumin, Protonix, electrolyte protocol -Encourage PO intake and honor food preferences within diet restrictions. -RD will follow up within 7 days if pt still admitted.
[2021-02-05 16:00] VITALS: BP 147/51
[2021-02-05 20:00] VITALS: BP 138/63
[2021-02-05 21:00] VITALS: BP 138/63
--- NOTE | 2021-02-05 21:20 | NUR ---
REPORT RECEIVED, WILL CONT POC. PT A&O, UP IN BED WATCHING TV. NO S/S OF DISTRESS OBSERVED. RR EVEN AND UNLABORED ON 5L. BED LOCKED AND LOWERED, CL IN REACH. ASSESSMENT COMPLETED AT THIS TIME. WILL CONT TO MONITOR.
[2021-02-06 04:00] VITALS: BP 142/67
[2021-02-06 05:45] LABS: BASOPHILS 0.3 % (0-2); EOSINOPHILS 6.8 % (0-7); HEMATOCRIT 42.7 % (42.0-54.0); HEMOGLOBIN 13.3 g/dL (13.5-17.5); IMMATURE GRANULOCYTES 0.2 % (0-5); LYMPHOCYTE ABS# 1.31 10x3/uL (1.32-3.57); LYMPHOCYTES 21.9 % (15-50); MCH 28.9 pg (26.0-34.0); MCHC 31.1 g/dL (31.0-37.0); MCV 92.6 fL (80.0-100.0); MEAN PLATELET VOLUME 9.3 fL (7.4-10.4); MONOCYTES 13.7 % (2-11); NEUTROPHIL ABS# 3.42 10x3/uL (1.78-5.38); NEUTROPHILS 57.1 % (40-80); PLATELET COUNT 186 10x3/uL (130-400); RBC 4.61 10x6/uL (4.20-6.10); RDW 14.2 % (11.5-14.5)
[2021-02-06 06:28] LABS: ALBUMIN 5.2 g/dL (3.4-5.0); ALKALINE PHOSPHATASE 47 U/L (30-120); ALT (SGPT) 39 U/L (10-68); BILIRUBIN - TOTAL 0.71 mg/dL (0.2-1.3); CALC OSMOLALITY 284 mosm/kg (275-300); CALCIUM 9.9 mg/dL (8.5-10.1); CARBON DIOXIDE 38.7 mmol/L (21.0-32.0); CHLORIDE - SERUM 95 mmol/L (98-107); CREATININE - SERUM 0.8 mg/dL (0.6-1.3); POTASSIUM - SERUM 4.5 mmol/L (3.5-5.1); PROTEIN - SERUM 8.2 g/dL (6.4-8.2); SODIUM 137 mmol/L (136-145); UREA NITROGEN 20 mg/dL (7-18); eGFR NON AFRICAN AMERICAN > 90 mL/min (90-120)
[2021-02-06 06:30] LABS: GLUCOSE 249 mg/dL (74-106)
--- NOTE | 2021-02-06 08:22 | NUR ---
AM MEDS GIVEN PER EMAR. PT SITTING UP IN BED, AWAKE AND ALERT. BREAKFAST TRAY SET UP WITH ASSISTANCE. RR EVEN NON LABORED WITH O2 IN PLACE. PT DENIES ANY PAIN OR NEEDS AT THIS TIME. CLWR.
[2021-02-06 08:28] VITALS: BP 136/58
[2021-02-06 12:31] VITALS: BP 128/62
[2021-02-06] MEDS ORDERED: PLAVIX75 MG PO (12:53)
[2021-02-06] MEDS ORDERED: K-DUR20 MEQ PO (12:54)
[2021-02-06] MEDS ORDERED: PROTONIX40 MG PO (12:55)
[2021-02-06] MEDS ORDERED: FLUTICASONE PRO16 GM NASAL (12:55)
[2021-02-06] MEDS ORDERED: LANTUS INS100 UNITS/ SC (12:56)
[2021-02-06] MEDS ORDERED: BREO ELLIPTA 11 EACH INH (12:57)
[2021-02-06] MEDS ORDERED: LASIX40 MG PO (12:57)
[2021-02-06] MEDS ORDERED: CLINDAMYCIN HC300 MG PO (13:00)
[2021-02-06] MEDS ORDERED: PROBIOTIC BLEN1 EACH PO (13:02)
--- NOTE | 2021-02-06 14:00 | NUR ---
D/C INSTRUCTIONS GIVEN TO PT AND DAUGHTER AT THIS TIME. IV D/C'D AT THIS TIME, DRESSING APPLIED, CATHETER INTACT. PT ASSISTED TO GETTING DRESSED AND GATHERING BELONGINGS. INSTRUCTED PT HE IS TO WAIT UNTIL MEDICAL SUPPLY BRINGS HIS O2 TANK FOR D/C HOME. PT AND DAUGHTER STATE UNDERSTANDING. NO NEEDS VOICED. CLWR.
--- NOTE | 2021-02-06 15:22 | NUR ---
MEDICAL SUPPLY COMPANY ARRIVED TO GIVE O2 PORTABLE TANK AND EDUCATION.
--- NOTE | 2021-02-06 15:35 | NUR ---
PT WHEELED TO PRIVATE VEHICLE AT THIS TIME BY PCT. DAUGHTER TOOK ALL BELONGINGS TIME OF D/C. PORTABLE O2 SENT WITH PT FOR TRANSPORTATION HOME. NO DISTRESS NOTED ON DEPARTURE.
[2021-02-07 18:08] LABS: OVA + PARASITE EXAM Final report (())
== END 2021-02-06 15:35 | disposition home or self-care (01) | DRG 637 ==
LOC: D.ER 12:36 → D.M2 14:39 → D.MS 14:39 → D.EDHOLD 14:39 → D.MS 15:43 → D.M2 01-29 19:54
PROVIDERS: Family Medicine; Family Medicine Adult Medicine; ADMIT Emergency Medicine; ATTEND Emergency Medicine
PROC: 5A09357 Assistance with Respiratory Ventilation, Less than 24 Consecutive Hours, Continuous Positive Airway Pressure (ICD-10-PCS; principal; 2021-01-29)
DX: E11.628 Type 2 diabetes mellitus with other skin complications (principal); J96.02 Acute respiratory failure with hypercapnia; J18.9 Pneumonia, unspecified organism; E87.1 Hypo-osmolality and hyponatremia; I50.30 Unspecified diastolic (congestive) heart failure; L03.116 Cellulitis of left lower limb; L03.115 Cellulitis of right lower limb; I25.10 Atherosclerotic heart disease of native coronary artery without angina pectoris; E66.9 Obesity, unspecified; Z68.38 Body mass index [BMI] 38.0-38.9, adult; G89.29 Other chronic pain; M54.9 Dorsalgia, unspecified; E78.5 Hyperlipidemia, unspecified; N40.0 Benign prostatic hyperplasia without lower urinary tract symptoms; E11.51 Type 2 diabetes mellitus with diabetic peripheral angiopathy without gangrene; I11.0 Hypertensive heart disease with heart failure; E11.65 Type 2 diabetes mellitus with hyperglycemia; Z86.73 Personal history of transient ischemic attack (TIA), and cerebral infarction without residual deficits